=== PATIENT | female | born 2000 | race Caucasian/White ===

== ENCOUNTER → 2024-02-02 | Outpatient (CLI) | payer OTHER, SELFPAY ==
[2024-02-04 16:06] LABS: HPV Reflexed? NOT INDICATED
== END | disposition home or self-care (01) ==
LOC: LABSPEC 11:50
PROVIDERS: PCP Pediatrics; Referring Provider Nurse Practitioner Family; Visit Provider Nurse Practitioner Family
DX: Z12.4 Encounter for screening for malignant neoplasm of cervix (principal)
CPT/HCPCS: 88175; G0145

== ENCOUNTER → 2025-02-22 | Outpatient (CLI) | payer OTHER, SELFPAY ==
[2025-02-22 16:41] LABS: Hematocrit 39.6 % (37-47); Hemoglobin 13.4 g/dL (12.0-15.0); Immature Granulocytes Count 0.070 X10^3/uL (0.0-0.0); Mean Corp Hgb Conc 33.8 g/dL (32-36); Mean Corpuscular Volume 85.2 fL (81-99); Mean Platelet Vol. 11.0 fl (6.2-12.0); NRBC Flagged by Analyzer 0 % (0-5); Platelet Count 175 K/mm3 (150-450); RBC Distribution Width CV 12.1 % (11.6-14.6); RBC Distribution Width SD 37.2 fl (35.1-43.9); Red Blood Count 4.65 M/mm3 (4.2-5.4); White Blood Count 12.7 K/mm3 (4.4-11.0)
[2025-02-22 17:21] LABS: HIV Nonreactive (Nonreactive); Hepatitis B Surface Antigen Nonreactive (Nonreactive); Hepatitis C Antibody Nonreactive (Nonreactive); Syphilis Antibodies Nonreactive (Nonreactive)
[2025-02-25 06:07] LABS: Chlamydia By Nucleic Acid AMP Negative (Negative); Gonococcus By Nucleic Acid AMP Negative (Negative)
== END | disposition home or self-care (01) ==
LOC: BWCLAB 15:25
PROVIDERS: Visit Provider Obstetrics & Gynecology
DX: Z34.90 Encounter for supervision of normal pregnancy, unspecified, unspecified trimester (principal)
CPT/HCPCS: 36415; 85025; 86703; 86762; 86780; 86803; 86850; 86900; 86901; 87086; 87088; 87340; 87491; 87591

== ENCOUNTER → 2025-06-27 | Outpatient (CLI) | payer OTHER, SELFPAY ==
[2025-06-27 09:26] LABS: Hematocrit 34.2 % (37-47); Hemoglobin 11.5 g/dL (12.0-15.0); Immature Granulocytes Count 0.280 X10^3/uL (0.0-0.0); Mean Corp Hgb Conc 33.6 g/dL (32-36); Mean Corpuscular Volume 89.5 fL (81-99); Mean Platelet Vol. 11.1 fl (6.2-12.0); NRBC Flagged by Analyzer 0 % (0-5); Platelet Count 175 K/mm3 (150-450); RBC Distribution Width CV 12.5 % (11.6-14.6); RBC Distribution Width SD 40.6 fl (35.1-43.9); Red Blood Count 3.82 M/mm3 (4.2-5.4); White Blood Count 12.5 K/mm3 (4.4-11.0)
[2025-06-27 10:26] LABS: Glucose Challenge Gest 1H 50g 141 mg/dL (70-140); HIV Nonreactive (Nonreactive); Syphilis Antibodies Nonreactive (Nonreactive)
== END | disposition home or self-care (01) ==
PROVIDERS: Obstetrics & Gynecology; Visit Provider Student in an Organized Health Care Education/Training Program
DX: Z34.90 Encounter for supervision of normal pregnancy, unspecified, unspecified trimester (principal); Z3A.20 20 weeks gestation of pregnancy; Z13.1 Encounter for screening for diabetes mellitus
CPT/HCPCS: 36415; 82950; 85025; 86703; 86780

== ENCOUNTER → 2025-07-05 | Outpatient (CLI) | payer OTHER, SELFPAY ==
--- OUTSIDE RECORDS SUMMARY | 2025-07-05 06:58 | XMS RPT_ITS | CCD ---
Author Organization [facility] Care Team Providers Care Residential Caregiver Name Role Phone Pcp, No Primary Care Provider Unavailabl e Unavailable Primary Care Provider Unavailnino e Unavailable Primary Care Provider Ana Ruth MD, Dr. Flores Primary Care Provider Dr. Sandra Ruth MD Referring Provider Sury Brasher Attending Provider Selin HAYWARD, Dr. Moeller Attending Provider Dr. Melony Cruz DO Attending Provider Dr. Sandra Ruth MD Primary Care Physician Sury Brasher Attending Physician Dr. Sunni Moise MD Attending Physician Dr. Melony Cruz DO Attending Physician BASSAM PRIMARY CAREMD Primary Care Unavailable WHITNEY VALDIVIA Attending Unavailable SUNNI MOISE Referring Sunni Wooten Attending Unavailable Sunni Moise Attending Unavailable Melony Cruz Attending Sandra Tanner Referring Unavailable Melony Cruz Attending Sandra Tanner Primary Care Unavailable Sandra Ruth Referring Unavailable Sury Love Attending Unavailable Melony Cruz Attending Sunni Wooten Attending Unavailable Medications Current Medications Medication Drug Class(es) Dates Sig (Normalized) Sig (Original) amoxicillin 80 mg/ml oral suspension (5 sources) Penicillin-class Antibacterial Start: 11-08-2023 End: 11-18-2023 take 6.3 mL by mouth twice daily amoxicillin (AMOXIL) 400 mg/5 mL suspension Take 6.3 mL by mouth two times a day for 10 days. 126 mL 0 11/08/2023 11/18/2023 Active Start: 10-20-2023 End: 10-30-2023 take 10 mL by mouth twice daily amoxicillin (AMOXIL) 4 00 mg/5 mL suspension Indications: Strep throat Take 10 mL by mouth two times a day for 10 days. 200 mL 0 10/20/2023 10/30/2023 Active Start: 08-22-2022 End: 09-01-2022 take 6.3 mL by mouth twice daily amoxicillin (AMOXIL) 400 mg/5 mL suspension Take 6.3 mL by mouth twice daily for 10 days. 126 mL 0 08/22/2022 09/01/2022 Active Start: 08-22-2022 End: 08-22-2022 take 1 capsule by mouth twice daily amoxicillin (POLYMOX, AMOXIL) 500 mg capsule Take 1 capsule by mouth twice daily for 10 days. 20 capsule 0 08/22/2022 08/22/2022 Discontinued (Course of therapy completed) Start: 04-21-2015 End: 08-22-2022 amoxicillin (AMOXIL) 400 mg/ 5 mL suspension 12 ml twice a day x 10 days 240 mL 0 04/21/2015 08/22/2022 Discontinued (Course of therapy completed) Comment on above: Take 6.3 mL by mouth twice daily for 10 days. 12 ml twice a day x 10 days Take 1 capsule by [facility] twice daily for 10 days. Take 10 mL by mouth two times a day for 10 days. Take 6.3 mL by mouth two times a day for 10 days. docosahexaenoic acid 200 mg oral capsule (5 sources) Start: 025 Docosahexaenoic Acid ( Dha) 200 mg capsule Active mg PO February 18, 2025 12:00am Complies with drug therapy famotidine 20 mg oral tablet (1 source) Histamine-2 Receptor Antagonist Start: 024 take 1 tablet by mouth every twenty-four hours as needed famotidine (PEPCID) 20 mg tablet Take 1 tablet by mouth at bedtime as needed. 30 tablet 0 02/06/2024 Active Ibuprofen (3 sources) Nonsteroidal Anti-inflammatory Drug ibuprofen (MOTRIN ORAL) Take by mouth. 0 Active Comment on above: Take by mouth. predniSONE 10 mg oral tablet (1 source) Start: 024 predniSONE (DELTASONE) 10 mg tablet Take 4 tabs daily for 3 days, then 2 tabs daily for 3 days, then 1 tab daily for 3 days with food. 21 tablet 0 02/06/2024 Active Problems Active Problems Problem Classification Problem Date Documented Date Episodic/Chronic Allergic reactions (1 source) Contact dermatitis due to plants; Translations: [Unspecified contact dermatitis due to plants, except food] 02-06-2024 Episodic Disorders of teeth and jaw (6 sources) Loss of teeth due to extraction; Translations: [Partial loss of teeth, unspecified cause, unspecified class] 02-02-2024 Episodic Other and delivery including normal (20 sources) ; Translations: [Encounter for supervision of normal , unspecified, unspecified trimester] Onset: 04-20-2025 02-09-2025 Episodic Comment on above: LMP 12/27/24 , SARAVANAN 10/03/25, Hu sband: Ry Discussed genetic/ca rrier testing - undecided PRR, , SARAVANAN 6, : Ry Discussed genetic/ca rrier, afp declined. Other upper respiratory disease (1 source) Pain in throat; Translations: [Pain in throat] Episodic Other upper respiratory infections (2 sources) Streptococcal sore throat; Translations: [Streptococcal pharyngitis] 10-20-2023 Episodic Residual codes; unclassified (1 source) 16 weeks gestation of ; Translations: [16 weeks gestation of ] Onset: 04-20-2025 Episodic Residual codes; unclassified (1 source) 12 weeks gestation of ; Translations: [12 weeks gestation of ] Onset: 03-24-2025 Episodic Past or Other Problems Problem Classification Problem Date Documented Da te Episodic/Chronic Other screening for suspected conditions (not mental disorders or infectious disease) (1 source) Encounter for test, result unknown; Translations: [Encounter for test, result unknown] Onset: 02-09-2025 Episodic Results Test Name Value Interpretation Reference Range Facility [facility] Office Visit Reporton 05-19-2025 [facility] Office Visit Report [facility] [address], [address] [place] [address] OFFICE VISIT Date of Service: 05/19/25 MR#: [id number] Acct: [id number] Name: DOUG STILES Rep #: [id number] : 2000 Provider: Dr. Melony Upton DO Age/Sex: 24/F Location: [facility] – [place] Status: Signed Intake Vital Signs 02/22/25 14:32 04/20/25 15:34 05/19/25 15:45 Height 5 ft 8 in 5 ft 8 in 5 ft 8 in Weight: 196 lb 4 oz BMI 29.8 BP 128/83 H Intake Visit Reasons: 20 wk ob Web Publisher Required: No Is patient in pain?: No Allergies No Known Allergies Allergy (Verified 04/20/25 15:31) Medications ???Medication ???Instructions ???Recorded ???Confirmed ???Type docosahexaenoic acid 200 mg mg PO 02/18/25 05/19/25 History capsule ( DHA) Last Menstrual Period: 12/27/24 Zika: Zika virus screening: Negative : No PFSH PFSH Surgical History [place] teeth extracted Family History Brother Asthma Social History adopted: No household members: spouse number of children: 0 current occupational status: employed 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/hazards: No pets and animals: Yes pets and animals: dog(s) history of recent travel: Yes ([facility] - January 2025) out of state: Yes out of country: No sexually active: Yes Smoking Status: Never smoker second hand exposure: No alcohol intake: current alcohol intake frequency: holidays/special occasions only details: Not while substance use type: does not use well-balanced diet: about half the time caffeine: Yes Type: coffee eating out: 1-3 times/week during the past year weight has: remained stable what type of physical activity do you participate in: walking frequency: 3-4 times per week duration: 15-30 minutes/day mellissa/synagogue: Yarsani seatbelt use: always do you feel safe at home: Yes additional social history: : Ry Pierce History 1 Elective abortions 0 Hx Para 0 Spontaneous abortions 0 Hx # Term Pregnancies Ectopic pregnancies Hx # Pregnancies Multiple births # of living children 0 HPI 20 wk ob Details: DOUG STILES is a 24 year old who presents for routine OB visit. OB Visit SARAVANAN Calculator Estimated Delivery Date Method Current WG Current Estimate 10/03/25 LMP (Certain) 20w 3d Expected Delivery Route/Plan Labor Preferences- CB/BF classes: [] labor support person: [] labor intervention preferences: [] pain management options preferred: [] cut cord/dad catch: [] : [] PP control planned: [] discussed possible routes of delivery and associated risks: [] special requests: [] Specific Issue/Plans Covid status: [] Flu vaccine: [] Tdap vaccine: [] Rhogam: [] LARC form signed: [] Problem list reviewed and updated with the most current plan of care details and appropriate orders placed. Relevant counseling for the gestational age provided. Continue routine care and follow up unless otherwise noted in visit notes/problem list details Initial Weight: 173 lb Date -???-???-???-???-???- ???-???-???-???-???-? ??-???- EGA Weight BP Urine Prot -???-???-???-???-???- ???-???-???-???-???-? ??-???- Glucose FHR FuHt Pres Dilation -???-???-???-???-???- ???-???-???-???-???-? ??-???- Effaced St Visit Note 02/22/25 -???-???-???-???-???- ???-???-???-???-???-? ??-???- 8w 1d 173 lb 2 oz (+2 oz) 132/84 -???-???-???-???-???- ???-???-???-???-???-? ??-???- 165 -???-???-???-???-???- ???-???-???-???-???-? ??-???- JV- CRL cons istent with LMP. declines NIPT. 03/24/25 -???-???-???-???-???- ???-???-???-???-???-? ??-???- 12w 3d 179 lb 5 oz (+6 lb 5 oz) 130/87 -???-???-???-???-???- ???-???-???-???-???-? ??-???- 155 -???-???-???-???-???- ???-???-???-???-???-? ??-???- SM- no vb cr amping 04/20/25 -???-???-???-???-???- ???-???-???-???-???-? ??-???- 16w 2d 183 lb (+10 lb) 134/85 Negative -???-???-???-???-???- ???-???-???-???-???-? ??-???- Negative 145 -???-???-???-???-???- ???-???-???-???-???-? ??-???- Sm- no vb cr amping 05/19/25 -???-???-???-???-???- ???-???-???-???-???-? ??-???- 20w 3d 196 lb 4 oz (+23 lb 4 oz) 128/83 Negative -???-???-???-???-???- ???-???-???-???-???-? ??-???- Negative 150 -???-???-???-???-???- ???-???-???-???-???-? ??-???- JV- no lof, vaginal bleeding, or cramping. anatomy scan done but not complete. goes back soon for repeat. declines flu shot. ACOG First Trimester First Trimester: Desire for , Alcohol, Tobacco Cessation, Illicit/Recreational Drug/ (more content not included)... Normal [facility] - Chemistry and C hemistry - challengeOrdered By: Sunni Moise on 04-20-2025 Glucose Ql (U) Negative [facility] - UrinalysisOrder ed By: Sunni Moise on 04-20-2025 Protein Ql (U) Negative [facility] Lighthouse Keeper Office Visit Reporton 04-20-2025 Lighthouse Keeper Office Visit Report [facility] [address], [facility] [address] [place] [address] OFFICE VISIT Date of Service: 04/20/25 MR#: [id number] Acct: [id number] Name: DOUG STILES Rep #: [id number] : 2000 Provider: Dr. Sunni sellers MD Age/Sex: 24/F Location: [facility] – [place] Status: Signed Intake Vital Signs 02/09/25 10:14 02/22/25 14:32 03/24/25 15:46 04/20/25 15:34 Height 5 ft 8 in 5 ft 8 in 5 ft 8 in 5 ft 8 in Weight: 183 lb BMI 27.8 BP 134/85 H Intake Visit Reasons: 16wk OB Chief Complaint: 16wk OB Web Publisher Required: No Is patient in pain?: No Allergies No Known Allergies Allergy (Verified 04/20/25 15:31) Medications ???Medication ???Instructions ???Recorded ???Confirmed ???Type docosahexaenoic acid 200 mg mg PO 02/18/25 04/20/25 History capsule ( DHA) Last Menstrual Period: 12/27/24 : No PFSH PFSH Surgical History [place] teeth extracted Family History Brother Asthma Social History adopted: No household members: spouse number of children: 0 current occupational status: employed 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/hazards: No pets and animals: Yes pets and animals: dog(s) history of recent travel: Yes ([facility] - January 2025) out of state: Yes out of country: No sexually active: Yes Smoking Status: Never smoker second hand exposure: No alcohol intake: current alcohol intake frequency: holidays/special occasions only details: Not while substance use type: does not use well-balanced diet: about half the time caffeine: Yes Type: coffee eating out: 1-3 times/week during the past year weight has: remained stable what type of physical activity do you participate in: walking frequency: 3-4 times per week duration: 15-30 minutes/day mellissa/synagogue: Yarsani seatbelt use: always do you feel safe at home: Yes additional social history: : Ry Pierce History 1 Elective abortions 0 Hx Para 0 Spontaneous abortions 0 Hx # Term Pregnancies Ectopic pregnancies Hx # Pregnancies Multiple births # of living children 0 HPI 16wk OB Details: DOUG STILES is a 24 year old who presents for routine OB visit. OB Visit SARAVANAN Calculator Estimated Delivery Date Method Current WG Current Estimate 10/03/25 LMP (Certain) 16w 2d Expected Delivery Route/Plan Labor Preferences- CB/BF classes: [] labor support person: [] labor intervention preferences: [] pain management options preferred: [] cut cord/dad catch: [] : [] PP control planned: [] discussed possible routes of delivery and associated risks: [] special requests: [] Specific Issue/Plans Covid status: [] Flu vaccine: [] Tdap vaccine: [] Rhogam: [] LARC form signed: [] Problem list reviewed and updated with the most current plan of care details and appropriate orders placed. Relevant counseling for the gestational age provided. Continue routine care and follow up unless otherwise noted in visit notes/problem list details Initial Weight: 173 lb Date -???-???-???-???-???- ???-???-???-???-???-? ??-???- EGA Weight BP Urine Prot -???-???-???-???-???- ???-???-???-???-???-? ??-???- Glucose FHR FuHt Pres Dilation -???-???-???-???-???- ???-???-???-???-???-? ??-???- Effaced St Visit Note 02/22/25 -???-???-???-???-???- ???-???-???-???-???-? ??-???- 8w 1d 173 lb 2 oz (+2 oz) 132/84 -???-???-???-???-???- ???-???-???-???-???-? ??-???- 165 -???-???-???-???-???- ???-???-???-???-???-? ??-???- JV- CRL cons istent with LMP. declines NIPT. 03/24/25 -???-???-???-???-???- ???-???-???-???-???-? ??-???- 12w 3d 179 lb 5 oz (+6 lb 5 oz) 130/87 -???-???-???-???-???- ???-???-???-???-???-? ??-???- 155 -???-???-???-???-???- ???-???-???-???-???-? ??-???- SM- no vb cr amping 04/20/25 -???-???-???-???-???- ???-???-???-???-???-? ??-???- 16w 2d 183 lb (+10 lb) 134/85 Negative -???-???-???-???-???- ???-???-???-???-???-? ??-???- Negative 145 -???-???-???-???-???- ???-???-???-???-???-? ??-???- Sm- no vb cr amping ACOG First Trimester First Trimester: Desire for , Alcohol, Tobacco Cessation, Illicit/Recreational Drug/Substance Use, Intimate Partner Violence, Barriers to care, Unstable Housing, Communication Barriers, Environmental/Work Hazards, Anticipated Course of Care, Toxoplasmosis Precations, Use of Any medications, Sexual activity, Exercise, Dental Care, Sauna/Hot tub use, Seat Belt use, Childbirth classes/Hospital facilities, Travel, Indications for Ultrasound and S (more content not included)... Normal [facility] Lighthouse Keeper Office Visit Reporton 03-24-2025 Lighthouse Keeper Office Visit Report [facility] [address], [address] [place] [address] OFFICE VISIT Date of Service: 03/24/25 MR#: [id number] Acct: [id number] Name: DOUG STILES Rep #: [id number] : 2000 Provider: Dr. Sunni sellers MD Age/Sex: 24/F Location: [facility] – [place] Status: Signed Intake Vital Signs 02/09/25 10:14 02/22/25 14:32 03/24/25 15:46 Height 5 ft 8 in 5 ft 8 in 5 ft 8 in Weight: 179 lb 5 oz BMI 27.2 BP 130/87 H Intake Visit Reasons: 12wk OB Web Publisher Required: No Is patient in pain?: No Feel stressed/tense/nervou s/anxious/difficulty sleeping: not at all Allergies No Known Allergies Allergy (Verified 03/24/25 15:44) Medications ???Medication ???Instructions ???Recorded ???Confirmed ???Type docosahexaenoic acid 200 mg mg PO 02/18/25 03/24/25 History capsule ( DHA) Last Menstrual Period: 12/27/24 Zika: Zika virus screening: Negative : No PFSH PFSH Surgical History [place] teeth extracted Family History Brother Asthma Social History adopted: No household members: spouse number of children: 0 current occupational status: employed 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/hazards: No pets and animals: Yes pets and animals: dog(s) history of recent travel: Yes ([facility] - January 2025) out of state: Yes out of country: No sexually active: Yes Smoking Status: Never smoker second hand exposure: No alcohol intake: current alcohol intake frequency: holidays/special occasions only details: Not while substance use type: does not use well-balanced diet: about half the time caffeine: Yes Type: coffee eating out: 1-3 times/week during the past year weight has: remained stable what type of physical activity do you participate in: walking frequency: 3-4 times per week duration: 15-30 minutes/day mellissa/synagogue: Yarsani seatbelt use: always do you feel safe at home: Yes additional social history: : Ry - [employer] History 1 Elective abortions 0 Hx Para 0 Spontaneous abortions 0 Hx # Term Pregnancies Ectopic pregnancies Hx # Pregnancies Multiple births # of living children 0 HPI 12wk OB Details: DOUG STILES is a 24 year old who presents for routine OB visit. OB Visit SARAVANAN Calculator Estimated Delivery Date Method Current WG Current Estimate 10/03/25 LMP (Certain) 12w 3d Expected Delivery Route/Plan Labor Preferences- CB/BF classes: [] labor support person: [] labor intervention preferences: [] pain management options preferred: [] cut cord/dad catch: [] : [] PP control planned: [] discussed possible routes of delivery and associated risks: [] special requests: [] Specific Issue/Plans Covid status: [] Flu vaccine: [] Tdap vaccine: [] Rhogam: [] LARC form signed: [] Problem list reviewed and updated with the most current plan of care details and appropriate orders placed. Relevant counseling for the gestational age provided. Continue routine care and follow up unless otherwise noted in visit notes/problem list details Initial Weight: 173 lb Date -???-???-???-???-???- ???-???-???-???-???-? ??-???- EGA Weight BP Urine Prot -???-???-???-???-???- ???-???-???-???-???-? ??-???- Glucose FHR FuHt Pres Dilation -???-???-???-???-???- ???-???-???-???-???-? ??-???- Effaced St Visit Note 02/22/25 -???-???-???-???-???- ???-???-???-???-???-? ??-???- 8w 1d 173 lb 2 oz (+2 oz) 132/84 -???-???-???-???-???- ???-???-???-???-???-? ??-???- 165 -???-???-???-???-???- ???-???-???-???-???-? ??-???- JV- CRL cons istent with LMP. declines NIPT. 03/24/25 -???-???-???-???-???- ???-???-???-???-???-? ??-???- 12w 3d 179 lb 5 oz (+6 lb 5 oz) 130/87 -???-???-???-???-???- ???-???-???-???-???-? ??-???- 155 -???-???-???-???-???- ???-???-???-???-???-? ??-???- SM- no vb cr amping ACOG First Trimester First Trimester: Desire for , Alcohol, Tobacco Cessation, Illicit/Recreational Drug/Substance Use, Intimate Partner Violence, Barriers to care, Unstable Housing, Communication Barriers, Environmental/Work Hazards, Anticipated Course of Care, Toxoplasmosis Precations, Use of Any medications, Sexual activity, Exercise, Dental Care, Sauna/Hot tub use, Seat Belt use, Childbirth classes/Hospital facilities, Travel, Indications for Ultrasound and Screening for Aneuploidy; Discussed Coding Level of Care Code OB Routine Diagnoses Supervision of normal Z34.90 12 weeks gestation of pregnan (more content not included)... Normal [facility] Chlamydia/GC SO aptimaon CHLAMY,NUC ACID Negative Normal Negative [facility] Comment on above: Performed By: #### L 6999.1799, #### [facility] [address] [place], [address] GC BY NUC ACID Negative Normal Negative [facility] Comment on above: Result Comment: Perf ormed at: =G - [facility] [address] [id number] Rn Medical Inpatient Services: Rebekah Villavicencio MD, Phone: [phone] Performed By: #### L 0.1800, #### [facility] [address] [place], [address] Urine Cultureon 02-24-2025 [facility] Below infection level. Mixed Gram Positive Organisms [place] Count <1000 MIXC Mixed contaminants. Submit a new specimen if indicated. Normal [facility] Comment on above: Performed By: #### L 7000.1800, M100.2200 #### [facility] [address] [place], [place], [id number] Absolute lymphocyte countOrd ered By: Melony Yarelis on 02-22-2025 Lymphocytes Auto (Unsp spec) [#/Vol] 2.19 10*3/uL 0.83-4.51 [facility] Absolute neutrophil countOrd ered By: Melony Yarelis on 02-22-2025 Neutrophils (Bld) [#/Vol] 9.3 10*3/uL High 2.0-7.7 [facility] Automated lymphocyte count a s percentage of total leukocytesOrdered By: Melony Santoyo on 02-22-2025 Lymphocytes/100 WBC Auto (Unsp spec) 17.3 % Low 19-41 [facility] Basophil percentageOrdered B y: Melony Yarelis on 02-22-2025 Basophils/100 WBC (Bld) 0.3 % 0-1 [facility] CBC W/Diff, Automatedon 01-26 Absolute Lymph 2.19 X10 3/uL Normal 0.83-4.51 [facility] Comment on above: Performed By: #### B TS, L3890.6301, L3890.6006, L3890.6102, L100.0100, L509.8002, L509.4006 #### [facility] [address] [place], [place], [id number] Absolute Neut 9.3 X10 3/uL High 2.0-7.7 [facility] Comment on above: Performed By: #### B TS, L3890.6301, L3890.6006, L3890.6102, L100.0100, L509.8002, L509.4006 #### [facility] [address] [place], [address] Basophils/100 WBC (Bld) 0.3 % Normal 0-1 [facility] Comment on above: Performed By: #### B TS, L3890.6301, L3890.6006, L3890.6102, L100.0100, L509.8002, L509.4006 #### [facility] [address] [place], [address] Eosinophils/100 WBC (Bld) 0.6 % Normal 0-5 [facility] Comment on above: Performed By: #### B TS, L3890.6301, L3890.6006, L3890.6102, L100.0100, L509.8002, L509.4006 #### [facility] [address] [place], [address] Erythrocyte distribution width (RBC) [Ratio] 12.1 % Normal 11.6-14.6 [facility] Comment on above: Performed By: #### B TS, L3890.6301, L3890.6006, L3890.6102, L100.0100, L509.8002, L509.4006 #### [facility] [address] [place], [address] Hematocrit (Bld) [Volume fraction] 39.6 % Normal 37-47 [facility] Comment on above: Performed By: #### B TS, L3890.6301, L3890.6006, L3890.6102, L100.0100, L509.8002, L509.4006 #### [facility] [address] [place], [address] Hemoglobin (Bld) [Mass/Vol] 13.4 g/dL Normal 12.0-15.0 [facility] Comment on above: Performed By: #### B TS, L3890.6301, L3890.6006, L3890.6102, L100.0100, L509.8002, L509.4006 #### [facility] [address] [place], [address] IG% 0.600 Normal 0.0-0.9 [facility] Comment on above: Result Comment: IG% - Immature Granulocytes (promyelocytes, myelocytes and metamyelocytes) > 1% indicates that a LEFT SHIFT is Present. Performed By: #### B TS, L3890.6301, L3890.6006, L3890.6102, L100.0100, L509.8002, L509.4006 #### [facility] [address] [place], [address] Lymphocytes/100 WBC (Bld) 17.3 % Low 19-41 [facility] Comment on above: Performed By: #### B TS, L3890.6301, L3890.6006, L3890.6102, L100.0100, L509.8002, L509.4006 #### [facility] [address] [place], [address] MCH (RBC) [Entitic mass] 28.8 pg Normal 27.0-32.0 [facility] Comment on above: Performed By: #### B TS, L3890.6301, L3890.6006, L3890.6102, L100.0100, L509.8002, L509.4006 #### [facility] [address] [place], [address] MCHC (RBC) [Mass/Vol] 33.8 g/dL Normal 32-36 [facility] Comment on above: Performed By: #### B TS, L3890.6301, L3890.6006, L3890.6102, L100.0100, L509.8002, L509.4006 #### [facility] [address] [place], [address] MCV (RBC) [Entitic vol] 85.2 fL Normal 81-99 [facility] Comment on above: Performed By: #### B TS, L3890.6301, L3890.6006, L3890.6102, L100.0100, L509.8002, L509.4006 #### [facility] [address] [place], [address] Monocytes/100 WBC (Bld) 7.7 % Normal 0-10 [facility] Comment on above: Performed By: #### B TS, L3890.6301, L3890.6006, L3890.6102, L100.0100, L509.8002, L509.4006 #### [facility] [address] [place], [address] Neutrophils/100 WBC (Bld) 73.5 % High 47-70 [facility] Comment on above: Performed By: #### B TS, L3890.6301, L3890.6006, L3890.6102, L100.0100, L509.8002, L509.4006 #### [facility] [facility] [address] [place], [address] Nucleated RBC (Bld) [#/Vol] 0 10*3/uL Normal 0-5 [facility] Comment on above: Performed By: #### B TS, L3890.6301, L3890.6006, L3890.6102, L100.0100, L509.8002, L509.4006 #### [facility] [address] [place], [address] Platelet mean volume (Bld) [Entitic vol] 11.0 fL Normal 6.2-12.0 [facility] Comment on above: Performed By: #### B TS, L3890.6301, L3890.6006, L3890.6102, L100.0100, L509.8002, L509.4006 #### [facility] [address] [place], [address] Platelets (Bld) [#/Vol] 175 10*3/uL Normal 150-450 [facility] Comment on above: Performed By: #### B TS, L3890.6301, L3890.6006, L3890.6102, L100.0100, L509.8002, L509.4006 #### [facility] [address] [place], [address] RBC (Bld) [#/Vol] 4.65 10*6/uL Normal 4.2-5.4 [facility] Comment on above: Performed By: #### B TS, L3890.6301, L3890.6006, L3890.6102, L100.0100, L509.8002, L509.4006 #### [facility] [address] [place], [address] RDW SD 37.2 fl Normal 35.1-43.9 [facility] Comment on above: Performed By: #### B TS, L3890.6301, L3890.6006, L3890.6102, L100.0100, L509.8002, L509.4006 #### [facility] [address] [place], [address] WBC (Bld) [#/Vol] 12.7 10*3/uL High 4.4-11.0 [facility] Comment on above: Performed By: #### B TS, L3890.6301, L3890.6006, L3890.6102, L100.0100, L509.8002, L509.4006 #### [facility] [address] [place], [address] Chlamydia trachomatis rRNA d etection by probe and target amplification methodOrdered By: Melony Santoyo on 02-22-2025 C. trachomatis rRNA SO+probe Ql (Unsp spec) Negative Negative [facility] Eosinophil percentageOrdered By: Melony Lenzkelley on 02-22-2025 Eosinophils/100 WBC (Bld) 0.6 % 0-5 [facility] Erythrocyte distribution wid th ratioOrdered By: Melony Santoyo on 02-22-2025 Erythrocyte distribution width (RBC) [Ratio] 12.1 % 11.6-14.6 [facility] Erythrocyte distribution wid th standard deviationOrdered By: Melony Santoyo on 02-22-2025 Erythrocyte distribution width (RBC) [Ratio] 37.2 fl 35.1-43.9 [facility] HIVon 02-22-2025 HIV Non-Reactive Normal Nonreactive [facility] Comment on above: Result Comment: Non- Reactive Reactive Repeatedly reactive samples must be confirmed according to CDC recommended confirmatory algorithms. The subresults for either HIVAG or AHIV can be used as an aid in the selection of the confirmation algorithm for reactive samples. Send out specimens with Reactive results to [facility] for confirmation. Order the HIV antibody detection and differentiation: lc#[id number] Performed By: #### B TS, L3890.6301, L3890.6006, L3890.6102, L100.0100, L509.8002, L509.4006 #### [facility] [address] [place], [address] Hematocrit Auto (Bld) [Volum e fraction]Ordered By: Melony Santoyo on 02-22-2025 Hematocrit (Bld) [Volume fraction] 39.6 % 37-47 [facility] Hemoglobin measurementOrdere d By: Melony Yarelis on 02-22-2025 Hemoglobin (Bld) [Mass/Vol] 13.4 g/dL 12.0-15.0 [facility] Hepatitis C Antibodyon 02-22 Hepatitis C Ab Non-Reactive Normal Nonreactive [facility] Comment on above: Result Comment: Reac tive: Presumptive evidence of antibodies to HCV. Follow CDC recommendations for supplemental testing. Non-Reactive: Antibodies to HCV were not detected; does not exclude the possibility of exposure to HCV Reactive Results are presumptive evidence of antibodies to HCV. Follow CDC recommendations for supplemental testing. Order confirmation testing: HCV Quant by PCR testing - HCVPCR #[id number] Non Reactive: < 0.8 Equivocal: >/= 0.8 to < 1.0 Reactive: >/= 1.0 The CDC requires that a reactive/equivocal HCV antibody result be sent out for confirmation. HCV Quant by PCR testing. Performed By: #### B TS, L3890.6301, L3890.6006, L3890.6102, L100.0100, L509.8002, L509.4006 ####[facility] [id number] [facility] [place], [address] Immature granulocytes/100 WB C Auto (Bld)Ordered By: Melony Santoyo on 02-22-2025 Immature granulocytes/100 WBC (Bld) 0.600 % 0.0-0.9 [facility] Comment on above: IG% - Immature Granu locytes (promyelocytes, myelocytes and metamyelocytes) > 1% indicates that a LEFT SHIFT is Present. L3890.6102on 02-22-2025 HEP B Surf Ag Non-Reactive Normal Nonreactive [facility] Comment on above: Result Comment: Reac tive: Presumptive evidence of HBV. Repeatedly reactive samples must be confirmed using a neutralization test ([employer] HBsAg Confirmatory Test) Non-Reactive: HBsAg not detected; does not exclude the possibility of exposure to HBV Performed By: #### B TS, L3890.6301, L3890.6006, L3890.6102, L100.0100, L509.8002, L509.4006 #### [facility] [address] [facility] [place], [address] L509.4006on 02-22-2025 Rubella IgG REAC Normal Nonreactive [facility] Comment on above: Result Comment: Anti body Result: Interpretation Non-Reactive: Non-Immune Reactive: Immune The following results were obtained with the [employer] Rubella IgG assay. Results from assays of other manufacturers cannot be used interchangeably. Performed By: #### B TS, L3890.6301, L3890.6006, L3890.6102, L100.0100, L509.8002, L509.4006 #### [facility] [address] [place], [address] Laboratory - Microbiology an d Antimicrobial susceptibilityOrdered By: Melony Santoyo on 02-22-2025 HBV surface Ag Ql (S) Non-Reactive Nonreactive [facility] Comment on above: Reactive: Presumptiv e evidence of HBV. Repeatedly reactive samples must be confirmed using a neutralization test ([employer] HBsAg Confirmatory Test)Non-Reactive: HBsAg not detected; does not exclude the possibility of exposure to HBV MCV (mean corpuscular volume ) determinationOrdered By: Melony Santoyo on 02-22-2025 MCV (RBC) [Entitic vol] 85.2 fL 81-99 [facility] Mean corpuscular hemoglobin (MCH) determinationOrdered By: Melony Santoyo on 02-22-2025 MCH (RBC) [Entitic mass] 28.8 pg 27.0-32.0 [facility] Mean corpuscular hemoglobin concentration (MCHC) determinationOrdered By: Melony Santoyo on 02-22-2025 MCHC (RBC) [Mass/Vol] 33.8 g/dL 32-36 [facility] Mean platelet volume determi nationOrdered By: Melony Santoyo on 02-22-2025 Platelet mean volume (Bld) [Entitic vol] 11.0 fL 6.2-12.0 [facility] Monocyte percentageOrdered B y: Melony Santoyo on 02-22-2025 Monocytes/100 WBC (Bld) 7.7 % 0-10 [facility] Neisseria gonorrhoeae nuclei c acid detection by amplified probe techniqueOrdered By: Melony Santoyo on 02-22-2025 N. gonorrhoeae DNA SO+probe Ql (Unsp spec) Negative Negative [facility] Comment on above: Performed at: =[facility] [address] [id number] Director: Rebekah Villavicencio MD, Phone: [phone] Neutrophil percentageOrdered By: Melony Santoyo on 02-22-2025 Neutrophils/100 WBC (Bld) 73.5 % High 47-70 [facility] No Panel InformationOrdered By: Melony Santoyo on 02-22-2025 HIV (1&2) Antibody Non-Reactive Nonreactive [facility] Comment on above: Non-ReactiveReactive Repeatedly reactive samples must be confirmed according to CDC recommended confirmatory algorithms. The subresults for either HIVAG or AHIV can be used as an aid in the selection of the confirmation algorithm for reactive samples.Send out specimens with Reactive results to [facility] for confirmation.Order the HIV antibody detection and differentiation: #[id number] Nucleated red blood cell per centageOrdered By: Melony Santoyo on 02-22-2025 Nucleated RBC/100 WBC (Bld) [Ratio] 0 % 0-5 [facility] Office Visit Reporton 02-22-2025 [facility] Office Visit Report [facility] [address], [address] [place] [address] OFFICE VISIT Date of Service: 02/22/25 MR#: [id number] Acct: [id number] Name: DOUG STILES Rep #: [id number] : 2000 Provider: Dr. Melony Upton DO Age/Sex: 24/F Location: [facility] [place] Status: Signed Intake Vital Signs 02/09/25 09:04 02/09/25 10:14 02/18/25 09:07 02/22/25 14:30 02/22/25 14:32 Height 5 ft 8 in 5 ft 8 in 5 ft 8 in 5 ft 8 in 5 ft 8 in Weight: 173 lb 2 oz BMI 26.3 BP 132/84 H Intake Visit Reasons: *EST* NOB LMP 6/, SARAVANAN 10/03 Web Publisher Required: No Is patient in pain?: No Allergies No Known Allergies Allergy (Verified 02/22/25 14:30) Medications ???Medication ???Instructions ???Recorded ???Confirmed ???Type docosahexaenoic acid 200 mg mg PO 02/18/25 02/22/25 History capsule ( DHA) Last Menstrual Period: 12/27/24 Zika: Zika virus screening: Negative : No PFSH PFSH Surgical History [place] teeth extracted Family History Brother Asthma Social History adopted: No household members: spouse number of children: 0 current occupational status: employed 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/hazards: No pets and animals: Yes pets and animals: dog(s) history of recent travel: Yes ([facility] - January 2025) out of state: Yes out of country: No sexually active: Yes Smoking Status: Never smoker second hand exposure: No alcohol intake: current alcohol intake frequency: holidays/special occasions only details: Not while substance use type: does not use well-balanced diet: about half the time caffeine: Yes Type: coffee eating out: 1-3 times/week during the past year weight has: remained stable what type of physical activity do you participate in: walking frequency: 3-4 times per week duration: 15-30 minutes/day mellissa/synagogue: Yarsani seatbelt use: always do you feel safe at home: Yes additional social history: : [place] History 1 Elective abortions 0 Hx Para 0 Spontaneous abortions 0 Hx # Term Pregnancies Ectopic pregnancies Hx # Pregnancies Multiple births # of living children 0 HPI *EST* NOB LMP 6/, SARAVANAN 10/03 Details: DOUG STILES is a 24 year old who presents for New OB visit. OB Visit [facility] Calculator Estimated Delivery Date Method Current WG Current Estimate 10/03/25 LMP (Certain) 8w 1d Estimated Due Date: 10/03/25 Expected Delivery Route/Plan Labor Preferences- CB/BF classes: [] labor support person: [] labor intervention preferences: [] pain management options preferred: [] cut cord/dad catch: [] : [] PP control planned: [] discussed possible routes of delivery and associated risks: [] special requests: [] Specific Issue/Plans Covid status: [] Flu vaccine: [] Tdap vaccine: [] Rhogam: [] LARC form signed: [] Problem list reviewed and updated with the most current plan of care details and appropriate orders placed. Relevant counseling for the gestational age provided. Continue routine care and follow up unless otherwise noted in visit notes/problem list details Initial Weight: 173 lb Date -???-???-???-???-???- ???-???-???-???-???-? ??-???- EGA Weight BP Urine Prot -???-???-???-???-???- ???-???-???-???-???-? ??-???- Glucose FHR FuHt Pres Dilation -???-???-???-???-???- ???-???-???-???-???-? ??-???- Effaced St Visit Note 02/22/25 -???-???-???-???-???- ???-???-???-???-???-? ??-???- 8w 1d 173 lb 2 oz (+2 oz) 132/84 -???-???-???-???-???- ???-???-???-???-???-? ??-???- 165 -???-???-???-???-???- ???-???-???-???-???-? ??-???- JV- CRL cons istent with LMP. declines NIPT. Menstrual History Last Menstrual Period: 12/27/24 Reported LMP: definite Normal amount/duration: Yes Frequency in days: 31 On hormonal BC at conception: No hCG+: 01/28/25 Antepartum Record Genetic Screening: Congenital Heart Defect: Other, Neural Tube Defect: Other, Hemoglobinopathy Or Carrier: Other, Cystic Fibrosis: Other, Chromosome Abnormality: Other, Ronak-Sachs: Other, Hemophilia: Other, Intellectual Disability/Autism: Other, Recurrent Loss/Stillbirth: Other, Other Structural Defect: Other, Other Genetic Disease: Other and Maternal Metabolic Disorder: Other Infection History: Live with someone with TB or Exposed to TB: No, Patient or Partner has history of Genital Herpes: No, Rash or Viral illness since last mentrual period: No, Prior GBS-Infected child: No, History of STD: No, HIV Infection: No, History of (more content not included)... Normal [facility] Platelet countOrdered By: Ted Santoyo on 02-22-2025 Platelets (Bld) [#/Vol] 175 10*3/uL 150-450 [facility] RBC Auto (Bld) [#/Vol]Ordere d By: Melony Santoyo on 02-22-2025 RBC (Bld) [#/Vol] 4.65 10*6/uL 4.2-5.4 [facility] Syphilis Antibodieson 2024 Syphilis Abs Non-Reactive Normal Nonreactive [facility] Comment on above: Performed By: #### B TS, L3890.6301, L3890.6006, L3890.6102, L100.0100, L509.8002, L509.4006 #### [facility] [address] [place], [place], [id number] Type AND Screenon 02-22-2025 ABO and Rh group Nom (Bld) Blood group A Rh(D) positive Normal [facility] Comment on above: Order Comment: PN Performed By: #### B TS, L3890.6301, L3890.6006, L3890.6102, L100.0100, L509.8002, L509.4006 ####[facility] [id number] [place], [place], [id number] Urine cultureOrdered By: Tiffanie Santoyo on 02-22-2025 Bacteria identified Cx Nom (U) Positive Abnormal [facility] White blood cell (WBC) count Ordered By: Melony Santoyo on 02-22-2025 WBC (Bld) [#/Vol] 12.7 10*3/uL High 4.4-11.0 [facility] Office Visit Reporton 2024 Office Visit Report [facility] [address] [place] [address] OFFICE VISIT Date of Service: 02/18/25 MR#: [id number] Acct: [id number] Patient: DOUG STILES Rep #: [id number] : 2000 Provider: Dr. Sunni sellers MD Age/Sex: 24/F Location: [facility] – [place] Status: Signed Intake Vital Signs 02/09/25 10:14 02/18/25 09:07 Height 5 ft 8 in 5 ft 8 in Weight: 171 lb 6 oz BMI 26.0 BP 110/66 Intake Visit Reasons: PNOB, Vitals, Education Allergies No Known Allergies Allergy (Verified 02/22/25 14:30) Medications ???Medication ???Instructions ???Recorded ???Confirmed ???Type docosahexaenoic acid 200 mg mg PO 02/18/25 02/22/25 History capsule ( DHA) Is last menstrual period known: Yes Post menopausal: No Patient : Yes Nurse's Note: Pt here for secondary amenorrhea. Vitals WNL. PNOB questions completed. Problem list, allergies, and medications updated. First trimester ACOG education completed. Assessment and Plan Assessment and Plan (1) : Status: Acute Comment: Discussed genetic/carrier testing - undecided (2) Supervision of normal : Status: Acute Comment: , SARAVANAN 10/03/25, : Ry Orders: Orders CBC W/Diff, Automated Today Z34.90 - Encounter for supervision of normal , unspecified, unspecified trimester Type Screen Today Z34.90 - Encounter for supervision of normal , unspecified, unspecified trimester Rubella IgG Today Z34.90 - Encounter for supervision of normal , unspecified, unspecified trimester Hepatitis C Antibody Today Z34.90 - Encounter for supervision of normal , unspecified, unspecified trimester Hepatitis B Surface Antigen Today Z34.90 - Encounter for supervision of normal , unspecified, unspecified trimester Culture, Urine Today Z34.90 - Encounter for supervision of normal , unspecified, unspecified trimester Syphilis Antibodies Today Z34.90 - Encounter for supervision of normal , unspecified, unspecified trimester Chlamydia/GC SO aptima Today Z34.90 - Encounter for supervision of normal , unspecified, unspecified trimester HIV Today Z34.90 - Encounter for supervision of normal , unspecified, unspecified trimester 02/22/25 1639 Date Sunni Moise MD Cosignvirgilio Signature: Date (if applicable) CC: Normal [facility] - Chemistry and C hemistry - challengeOrdered By: Sury Love on 02-09-2025 HCG ( test) Ql (U) Positive [facility] Office Visit Reporton 02-09-2025 [facility] Keeper Office Visit Report [facility] [address], [address] [place] [address] OFFICE VISIT Date of Service: 02/09/25 MR#: [id number] Acct: [id number] Name: DOUG STILES Rep #: [id number] : 2000 Provider: ADONIS Coyne Age/Sex: 24/F Location: [facility] – [place] Status: Signed Intake Vital Signs 02/02/24 09:01 02/09/25 09:04 02/09/25 09:37 Height 5 ft 8 in 5 ft 8 in Weight: 170 lb 6 oz BMI 25.9 BP 137/83 H 122/81 H Intake Visit Reasons: Annual (CONSTRUCTION ADMINISTRATOR) Web Publisher Required: No Is patient in pain?: No Allergies No Known Allergies Allergy (Verified 02/09/25 09:02) Medications ???Medication ???Instructions ???Recorded ???Confirmed ???Type NK 02/02/24 02/09/25 History Is last menstrual period known: Yes Last Menstrual Period: 12/27/24 Post menopausal: No Patient : Yes : No Control Method: none PFSH Surgical History [place] teeth extracted Family History Brother Asthma Social History (Updated 02/09/25 @ 09:12 by Sanjuanita Cheek) adopted: No household members: significant other number of children: 0 current occupational status: employed current occupation: teacher kindergarden pets and animals: Yes history of recent travel: No ([facility]) sexually active: Yes Smoking Status: Never smoker alcohol intake: never substance use type: does not use caffeine: Yes Type: coffee eating out: 1-3 times/week during the past year weight has: remained stable what type of physical activity do you participate in: walking frequency: 3-4 times per week mellissa/synagogue: Yarsani seatbelt use: always do you feel safe at home: Yes additional social history: [place]- . [place] History 1 Elective abortions Hx Para 0 Spontaneous abortions Hx # Term Pregnancies Ectopic pregnancies Hx # Pregnancies Multiple births # of living children 0 HPI Encounter for routine gynecological examination Details: DOUG STILES is a 24 year old who presents for annual exam. She would like to discuss family planning--she reports she took a test at home on January 28 and this was a positive--repeated and still positive. She reports her LMP was December 27. Last PAP: 2023; normal. History of abnormal PAP: no Last mammogram: age 38 History of abnormal mammogram: no Colon cancer screening: age 43 Other preventative health care screenings: Sandra Ruth; PCP Female Reproductive History Last Menstrual Period: 12/27/24 Questions: metorrhagia: No, sexually active: Yes, dyspareunia: No and PCB: No ROS Const Constitutional: Reports fatigue (with nausea); Denies chills, fever(s), headache(s) or weight loss Eyes Eyes: Denies change in vision ENT ENT: Denies dizziness Cardio Card: Denies chest pain at rest or palpitations Resp Resp: Denies cough or dyspnea GI GI: Denies abdominal pain, constipation or nausea : Denies difficulty voiding, dysuria, hematuria, nipple discharge, pelvic pain, prolapse symptoms, urinary incontinence, vaginal discharge, vaginal dryness, vaginal odor or vaginal pruritus Skin Skin/Breast: Reports breast pain (currently ); Denies alopecia, rash, breast mass, breast skin changes or nipple discharge Neuro Neuro: Denies dizziness Psych Psych: Denies anxiety or depression Endo Endo: Denies cold intolerance, excessive sweating or heat intolerance Exam Const General: cooperative, healthy appearing, comfortable, no acute distress, well groomed and well hydrated Nutritional Appearance: well nourished Orientation: alert, awake and oriented x3 HENMT Head: normal to inspection and normocephalic Ears: hearing grossly normal bilaterally and external ears normal Nose: external nose normal Face and sinus: normal facial exam Eyes General: appearance normal, both eyes and all related structures Neck Neck: normal visual inspection, full ROM and no lymphadenopathy Thyroid: thyroid normal Chest Chest palpation inspection: normal inspection of the chest Breast inspection: normal inspection of the breasts and normal inspection of the axillae Breast palpation: normal palpation of the breasts, normal palpation of the axillae and no axillary lymphadenopathy Resp Effort Inspection: normal respiratory effort, able to speak in complete sentences and symmetric chest movement GI Inspection: normal to inspection Palpation: soft and no hepatosplenomegaly General: bladder normal to palpation External Female Exam: normal external appearance and normal appearance of the urethra Urethra: normal appearance of the urethra Speculum Exam - Vagina: normal appearance of the vagina, normal vaginal discharge, no lesions (more content not included)... [facility] ) TOMMYMICHAELLEDOUG Piper ([id number]) 2000 F Date Time Provider Department 02/06/24 11:00 AM KYE JORGENSEN [facility] [[email or web address]] During your visit today, we recorded the following information about you: Temperature Pulse Respiration Blood pressure 98.5 degrees 72/minute 16/minute 142/72 Weight 73 kg Kye Jorgensen APRN.SHIPPING ROOM SUPERVISOR 02/06/2024 12:02 PM Signed This note was created using NoteWriter. Subjective Doug Piper Elder is a 23 year old female. 23 year old female with no significant PMH presents for rash. Acute onset Friday Raised and red rash +itchy Denies fever or chills Denies URI sx Denies SOB or dyspnea Denies drainage Denies malaise or fatigue Denies new medicines, foods, soaps or lotions. States that she was fishing Friday night The history is provided by the patient. No speech and language specialist was used. Rash This is a new problem. The current episode started in the past 7 days. The problem is unchanged. Location: arms, neck and hands. The rash is characterized by redness and itchiness. She was exposed to plant contact. Pertinent negatives include no anorexia, congestion, cough, diarrhea, eye pain, facial edema, fatigue, fever, joint pain, nail changes, rhinorrhea, shortness of breath, sore throat or vomiting. Past treatments include nothing. The treatment provided no relief. There is no history of allergies, asthma, eczema or varicella. No past medical history on file. No past surgical history on file. ALLERGIES Patient has no known allergies. MEDICATIONS predniSONE (DELTASONE) 10 mg tablet Take 4 tabs daily for 3 days, then 2 tabs daily for 3 days, then 1 tab daily for 3 days with food. famotidine (PEPCID) 20 mg tablet Take 1 tablet by mouth at bedtime as needed. ibuprofen (MOTRIN ORAL) Take by mouth. No family history on file. Social History Tobacco Use Smoking status: Never Smokeless tobacco: Never Substance Use Topics Alcohol use: Never Drug use: Never Review of Systems Constitutional: Negative for activity change, appetite change, fatigue and fever. HENT: Negative for congestion, rhinorrhea and sore throat. Eyes: Negative for pain. Respiratory: Negative for apnea, cough, chest tightness and shortness of breath. Cardiovascular: Negative for chest pain, palpitations and leg swelling. Gastrointestinal: Negative for abdominal pain, anorexia, diarrhea and vomiting. Musculoskeletal: Negative for joint pain. Skin: Positive for rash. Negative for nail changes. Allergic/Immunologic: Negative for environmental allergies, food allergies and immunocompromised state. Neurological: Negative for dizziness, facial asymmetry, light-headedness and headaches. Hematological: Negative for adenopathy. Does not bruise/bleed easily. Psychiatric/Behaviora l: Negative for agitation and behavioral problems. Objective BP 142/72 Pulse 72 Temp 36.9 ?C (98.5 ?F) Resp 16 Wt 73 kg (160 lb 15 oz) LMP 08/15/2022 SpO2 97% Physical Exam Vitals and nursing note reviewed. Constitutional: General: She is not in acute distress. Appearance: Normal appearance. She is normal weight. She is not ill-appearing, toxic-appearing or diaphoretic. HENT: Head: Normocephalic and atraumatic. Right Ear: Ear canal and external ear normal. Left Ear: Ear canal and external ear normal. Nose: Nose normal. No congestion or rhinorrhea. Mouth/Throat: Mouth: Mucous membranes are moist. Pharynx: No oropharyngeal exudate or posterior oropharyngeal erythema. Eyes: General: Right eye: No discharge. Left eye: No discharge. Extraocular Movements: Extraocular movements intact. Conjunctiva/sclera: Conjunctivae normal. Pupils: Pupils are equal, round, and reactive to light. Cardiovascular: Rate and Rhythm: Normal rate and regular rhythm. Pulses: Normal pulses. Heart sounds: Normal heart sounds. No murmur heard. No friction rub. Pulmonary: Effort: Pulmonary effort is normal. No respiratory distress. Breath sounds: Normal breath sounds. No stridor. No wheezing, rhonchi or rales. Chest: Chest wall: No tenderness. Abdominal: General: Abdomen is flat. There is no distension. Palpations: Abdomen is soft. There is no mass. Tenderness: There is no abdominal tenderness. There is no right CVA tenderness, left CVA tenderness, guarding or rebound. Hernia: No hernia is present. Musculoskeletal: General: No swelling, tenderness, deformity or signs of injury. Normal range of motion. Cervical back: Normal range of motion and neck supple. No rigidity. Right lower leg: No edema. Left lower leg: No edema. Lymphadenopathy: Cervical: No cervical adenopathy. Skin: General: Skin is warm and dry. Capillary Refill: Capillary refill takes less than 2 seconds. Coloration: Skin is not jaundiced or pale. Findings: Rash present. No bruising, erythema or lesion. Comments: B/L f (more content not included)... Normal [facility] CNOVon 11-08-2023 CNOV Office Visit (UCWSTR ) DOUG STILES ([id number]) 2000 F Date Time Provider Department 11/08/23 10:15 AM JUAN JERNIGAN [facility] [[email or web address]] During your visit today, we recorded the following information about you: Temperature Pulse Respiration Blood pressure 97.3 degrees 114/minute 18/minute 128/70 Weight 75.4 kg Juan Jernigan PA 11/08/2023 10:25 AM Signed This note was created using [employer] Human[employer]. Subjective Doug Stiles is a 22 year old female. HPI 22-year-old female presents for sore throat. Patient states sore throat started yesterday. She did have strep 3 weeks ago and finish all of her medication. She states that she felt better after finishing the medication and symptoms were completely resolved. She states yesterday she started getting sore throat again. 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 She thinks she may have gotten strep again. She did change her toothbrush out and Sticks out after being on the amoxicillin for 24 hours last time. No vomiting. Still able to eat and drink. She states she had a temp of 99.5 ?F this morning. Has not taken any Tylenol or Motrin. No past medical history on file. No past surgical history on file. ALLERGIES Patient has no known allergies. MEDICATIONS ibuprofen (MOTRIN ORAL) Take by mouth. amoxicillin (AMOXIL) 400 mg/5 mL suspension Take 6.3 mL by mouth two times a day for 10 days. No family history on file. Social History Tobacco Use Smoking status: Never Smokeless tobacco: Never Substance Use Topics Alcohol use: Never Drug use: Never Review of Systems Constitutional: Negative for chills and fever. HENT: Positive for sore throat. Negative for congestion and ear pain. Respiratory: Negative for cough and shortness of breath. Cardiovascular: Negative for chest pain. Gastrointestinal: Negative for diarrhea and vomiting. Objective BP 128/70 Pulse 114 Temp 36.3 ?C (97.3 ?F) Resp 18 Wt 75.4 kg (166 lb 3.6 oz) LMP 08/15/2022 SpO2 97% Physical Exam Vitals and nursing note reviewed. Constitutional: General: She is not in acute distress. Appearance: Normal appearance. She is not toxic-appearing. HENT: Right Ear: Tympanic membrane and ear canal normal. Left Ear: Tympanic membrane and ear canal normal. Nose: Nose normal. Mouth/Throat: Mouth: Mucous membranes are moist. Pharynx: Uvula midline. Posterior oropharyngeal erythema present. No oropharyngeal exudate. Tonsils: Tonsillar exudate present. No tonsillar abscesses. 1+ on the right. 1+ on the left. Eyes: Conjunctiva/sclera: Conjunctivae normal. Cardiovascular: Rate and Rhythm: Normal rate and regular rhythm. Pulmonary: Effort: Pulmonary effort is normal. Breath sounds: Normal breath sounds. Neurological: Mental Status: She is alert. Assessment and Plan ASSESSMENT/PLAN: 1. 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 Symptoms did completely resolve last month when she was on amoxicillin. Will treat with amoxicillin again. - Group A strep molecular testing negative - Amoxicillin for 10 days. - Discussed supportive care treatment with fluids, rest and analgesia. - Contagious dz precautions discussed- including considered contagious until on antibiotics for 24 hours Diagnosis and treatment plan were discussed and questions were answered to the patient's satisfaction. Pt acknowledged understanding of concepts and follow up plan. Specific signs and symptoms that would indicate the need for higher level of care were discussed in detail warranting prompt ER evaluation. ARLIN Burgos Allergies As of Date: 11/08/2023 (No Known Allergies) Date Reviewed: 11/08/2023 Reviewed by: Yessy Mcpherson MA - Fully Assessed Reason for Visit: Sore Throat [200] Cmt: X1 day, recent strep Primary Visit Diagnosis:Strep pharyngitis [J02.0] Order(s):amoxicillin (AMOXIL) 400 mg/5 mL suspensionTake 6.3 mL by mouth two times a day for 10 days.Disp: 126 mLRfl: 0 STREP A MOLECULAR (POC) [[id number]] Order #: [id number] #:[id number] Prescriptions as of 11/08/2023 - amoxicillin (AMOXIL) 400 mg/5 mL suspension Take 6.3 mL by mouth two times a day for 10 days. - ibuprofen (MOTRIN ORAL) Take by mouth. Problem List As Of Date: 11/08/2023 (None) Prescriptions ordered this encounter Disp Refills Start End AMOXICILLIN 400 MG/5 ML ORAL SUSPENS* 126 * 0 11/08/2023 11/18/2023 Route: ORAL Sig: Take 6.3 mL by mouth two times a day for 10 days. Encounter Status:Closed by JUAN JERNIGAN on 11/08/[address] [facility] STREP A MOLECULAR (POC)on Procedural Control Valid [facility] Strep A (POCT) Positive Abnormal Negative [facility] CNOVon 10-20-2023 CNOV Office Visit (UCWSTR ) DOUG STILES ([id number]) 2000 F Date Time Provider Department 10/20/23 12:45 PM CONSTANTIN SOLIS [facility] [[email or web address]] During your visit today, we recorded the following information about you: Temperature Pulse Respiration Blood pressure 99.6 degrees 100/minute 18/minute 118/80 Weight 74.9 kg Constantin Solis APRN.SHIPPING ROOM SUPERVISOR 10/20/2023 1:39 PM Signed This note was created using [employer]. Subjective Dougcollin Stiles is a 22 year old female. HPI Pt developed uri symptoms about a week ago. Yesterday she started with a sore throat and fever. Review of Systems Constitutional: Positive for fever. HENT: Positive for sore throat. Negative for rhinorrhea. Respiratory: Negative for cough. All other systems reviewed and are negative. Objective BP 118/80 Pulse 100 Temp 37.6 ?C (99.6 ?F) (Tympanic) Resp 18 Wt 74.9 kg (165 lb 2 oz) LMP 08/15/2022 SpO2 100% Physical Exam Vitals and nursing note reviewed. Constitutional: General: She is not in acute distress. Appearance: Normal appearance. She is not ill-appearing. HENT: Head: Normocephalic. Mouth/Throat: Mouth: Mucous membranes are moist. Pharynx: Posterior oropharyngeal erythema present. Eyes: Conjunctiva/sclera: Conjunctivae normal. Cardiovascular: Rate and Rhythm: Normal rate and regular rhythm. Pulmonary: Effort: Pulmonary effort is normal. Breath sounds: Normal breath sounds. Musculoskeletal: General: Normal range of motion. Cervical back: Normal range of motion. Skin: General: Skin is warm and dry. Neurological: General: No focal deficit present. Mental Status: She is alert. Psychiatric: Mood and Affect: Mood normal. Behavior: Behavior normal. Assessment and Plan ASSESSMENT/PLAN: 1. Strep throat - ICD9: 034.0, ICD10: J02.0 - suspect strep - Rapid Strep positive in the office today - Discussed supportive care treatment with fluids, rest and analgesia. - The patient may also use warm salt water gargles, throat lozenges and/or OTC throat spray as needed and nasal saline gtts and suction prn. - Contagious dz precautions discussed- including considered contagious until on antibiotics for 24 hours - The patient should follow up in 3-5 days if symptoms persist or worsen - Call back if drooling, increased temperature, symptoms of dehydration and/or still sick in one week - AMOXICILLIN 400 MG/5 ML ORAL SUSPENSION Constantin Solis APRN.CNP Allergies As of Date: 10/20/2023 (No Known Allergies) Date Reviewed: 10/20/2023 Reviewed by: Constantin Solis APRN.EMILIA - Fully Assessed Reason for Visit: Sore Throat [200] Cmt: ST and fever x 2 days Primary Visit Diagnosis:Strep throat [J02.0] Order(s):STREP A MOLECULAR (POC) [[id number]] Order #: [id number]. #:[id number] amoxicillin (AMOXIL) 400 mg/5 mL suspensionTake 10 mL by mouth two times a day for 10 days.Disp: 200 mLRfl: 0 Prescriptions as of 10/20/2023 - amoxicillin (AMOXIL) 400 mg/5 mL suspension Take 10 mL by mouth two times a day for 10 days. - ibuprofen (MOTRIN ORAL) Take by mouth. Problem List As Of Date: 10/20/2023 (None) Prescriptions ordered this encounter Disp Refills Start End AMOXICILLIN 400 MG/5 ML ORAL SUSPENS* 200 * 0 10/20/2023 10/30/2023 Route: ORAL Sig: Take 10 mL by mouth two times a day for 10 days. Letter Text Encounter Status:Closed by CONSTANTIN SOLIS on 10/20/[address] [facility] STREP A MOLECULAR (POC)on Procedural Control Valid [facility] Strep A (POCT) Positive Abnormal Negative [facility] Vital Signs Date Time Vital Sign Value Performing Clinician Facility 04-20-2025 15:34-0400 Body height 172.[address] Sandra Ruth MD Work Phone: 5(709)044-515057 [place] [address] 04-20-2025 15:34-0400 Body mass index (BMI) [Ratio] 27.8 kg/m2 Dr. Sandra Ruth MD Work Phone: 3(047)714-332957 [place] [address] 04-20-2025 15:34-0400 Body weight [address] Sandra Ruth MD Work Phone: 6(862)559-969957 [place] [address] 04-20-2025 15:34-0400 Diastolic blood pressure 85 mm[Hg] Dr. Sandra Ruth MD Work Phone: 7(141)247-997657 [place] [address] 04-20-2025 15:34-0400 Systolic blood pressure 134 mm[Hg] Dr. Sandra Ruth MD Work Phone: 5(541)142-154262 [place] [address] 03-24-2025 15:46-0400 Body height 172.[address] Sandra Ruth MD Work Phone: 0(774)176-296962 [place] [address] 03-24-2025 15:46-0400 Body mass index (BMI) [Ratio] 27.2 kg/m2 Dr. Sandra Ruth MD Work Phone: 5(113)298-416062 [place] [address] 03-24-2025 15:46-0400 Body weight 81.[address] Sandra Ruth MD Work Phone: 6(870)554-271257 [place] [address] 03-24-2025 15:46-0400 Diastolic blood pressure 87 mm[Hg] Dr. Sandra Ruth MD Work Phone: 6(492)626-413057 [place] [address] 03-24-2025 15:46-0400 Systolic blood pressure 130 mm[Hg] Dr. Sandra Ruth MD Work Phone: 9(935)172-144051 [address] 02-22-2025 14:32-0400 Body height 172.[address] Sandra Ruth MD Work Phone: 5(518)482-799957 [place] [address] 02-22-2025 14:30-0400 Body mass index (BMI) [Ratio] 26.3 kg/m2 Dr. Sandra Ruth MD Work Phone: 7(801)409-796057 [place] [address] 02-22-2025 14:30-0400 Body weight 78.[address] Sandra Ruth MD Work Phone: 7(990)726-188157 [place] [address] 02-22-2025 14:30-0400 Diastolic blood pressure 84 mm[Hg] Dr. Sandra Ruth MD Work Phone: 6(753)130-679657 [place] [address] 02-22-2025 14:30-0400 Systolic blood pressure 132 mm[Hg] Dr. Sandra Ruth MD Work Phone: 8(082)229-566257 [place] [address] 02-18-2025 09:07-0400 Body mass index (BMI) [Ratio] 26 kg/m2 Dr. Sandra Ruth MD Work Phone: 0(592)618-598257 [place] [address] 02-18-2025 09:07-0400 Body weight 77.[address] Sandra Ruth MD Work Phone: 5(438)121-239557 [place] [address] 02-18-2025 09:07-0400 Diastolic blood pressure 66 mm[Hg] Dr. Sandra Ruth MD Work Phone: 6(791)922-690657 [place] [address] 02-18-2025 09:07-0400 Systolic blood pressure 110 mm[Hg] Dr. Sandra Ruth MD Work Phone: 8(954)680-678957 [place] [address] 02-09-2025 09:37-0400 Diastolic blood pressure 81 mm[Hg] Dr. Sandra Ruth MD Work Phone: 0(355)463-698757 [place] [address] 02-09-2025 09:37-0400 Systolic blood pressure 122 mm[Hg] Dr. Sandra Ruth MD Work Phone: 0(937)152-231257 [place] [address] 02-09-2025 09:04-0400 Body height 172.[address] Sandra Ruth MD Work Phone: 5(323)213-119557 [place] [address] 02-09-2025 09:04-0400 Body mass index (BMI) [Ratio] 25.9 kg/m2 Dr. Sandra Ruth MD Work Phone: [facility] 02-09-2025 09:04-0400 Body weight 77.[address] Sandra Ruth MD Work Phone: [facility] 02-06-2024 11:02-0400 Body temperature 98.49 [degF] Kye Jorgensen TYPE CASTING MACHINE OPERATOR.SHIPPING ROOM SUPERVISOR Work Phone: [facility] 02-06-2024 11:02-0400 Body weight 73 kg Kye Jorgensen TYPE CASTING MACHINE OPERATOR.SHIPPING ROOM SUPERVISOR Work Phone: [facility] 02-06-2024 11:02-0400 Diastolic blood pressure 72 mm[Hg] Kye Jorgensen TYPE CASTING MACHINE OPERATOR.SHIPPING ROOM SUPERVISOR Work Phone: [facility] 02-06-2024 11:02-0400 Heart rate 72 /min Kye Jorgensen TYPE CASTING MACHINE OPERATOR.SHIPPING ROOM SUPERVISOR Work Phone: [facility] 02-06-2024 11:02-0400 Respiratory rate 16 /min Kye Jorgensen TYPE CASTING MACHINE OPERATOR.SHIPPING ROOM SUPERVISOR Work Phone: [facility] 02-06-2024 11:02-0400 SaO2% (BldA) [Mass fraction] 97 % Kye Jorgensen TYPE CASTING MACHINE OPERATOR.SHIPPING ROOM SUPERVISOR Work Phone: [facility] 02-06-2024 11:02-0400 Systolic blood pressure 142 mm[Hg] Kye Jorgensen TYPE CASTING MACHINE OPERATOR.SHIPPING ROOM SUPERVISOR Work Phone: [facility] 11-08-2023 10:13-0400 Body temperature 97.3 [degF] Krislyn Aberegg PA Work Phone: [facility] 11-08-2023 10:13-0400 Body weight 75.4 kg Krislyn Aberegg PA Work Phone: [facility] 11-08-2023 10:13-0400 Diastolic blood pressure 70 mm[Hg] Krislyn Aberegg PA Work Phone: [facility] 11-08-2023 10:13-0400 Heart rate 114 /min Krislyn Aberegg PA Work Phone: [facility] 11-08-2023 10:13-0400 Respiratory rate 18 /min Krislyn Aberegg PA Work Phone: [facility] 11-08-2023 10:13-0400 SaO2% (BldA) [Mass fraction] 97 % Krislyn Aberegg PA Work Phone: [facility] 11-08-2023 10:13-0400 Systolic blood pressure 128 mm[Hg] Krislyn Aberegg PA Work Phone: [facility] 10-20-2023 13:17-0400 Body temperature 99.61 [degF] Constantin Moomaw TYPE CASTING MACHINE OPERATOR.SHIPPING ROOM SUPERVISOR Work Phone: [facility] 10-20-2023 13:17-0400 Body weight 74.9 kg Constantin Moomaw TYPE CASTING MACHINE OPERATOR.SHIPPING ROOM SUPERVISOR Work Phone: [facility] 10-20-2023 13:17-0400 Diastolic blood pressure 80 mm[Hg] Constantin Moomaw TYPE CASTING MACHINE OPERATOR.SHIPPING ROOM SUPERVISOR Work Phone: [facility] 10-20-2023 13:17-0400 Heart rate 100 /min Constantin Moomaw TYPE CASTING MACHINE OPERATOR.SHIPPING ROOM SUPERVISOR Work Phone: [facility] 10-20-2023 13:17-0400 Respiratory rate 18 /min Constantin Moomaw TYPE CASTING MACHINE OPERATOR.SHIPPING ROOM SUPERVISOR Work Phone: [facility] 10-20-2023 13:17-0400 SaO2% (BldA) [Mass fraction] 100 % Constantin Moomaw TYPE CASTING MACHINE OPERATOR.SHIPPING ROOM SUPERVISOR Work Phone: [facility] 10-20-2023 13:17-0400 Systolic blood pressure 118 mm[Hg] Constantin Moomaw TYPE CASTING MACHINE OPERATOR.SHIPPING ROOM SUPERVISOR Work Phone: [facility] 08-22-2022 14:43-0500 Body temperature 99 [degF] Kan Hernandez TYPE CASTING MACHINE OPERATOR.SHIPPING ROOM SUPERVISOR Work Phone: [facility] 08-22-2022 14:43-0500 Body weight 82.37 [facility] TYPE CASTING MACHINE OPERATOR.SHIPPING ROOM SUPERVISOR Work Phone: [facility] 08-22-2022 14:43-0500 Diastolic blood pressure 72 mm[Hg] [facility] TYPE CASTING MACHINE OPERATOR.SHIPPING ROOM SUPERVISOR Work Phone: [facility] 08-22-2022 14:43-0500 Heart rate 94 /min [facility] TYPE CASTING MACHINE OPERATOR.SHIPPING ROOM SUPERVISOR Work Phone: [facility] 08-22-2022 14:43-0500 Respiratory rate 18 /min [facility] TYPE CASTING MACHINE OPERATOR.SHIPPING ROOM SUPERVISOR Work Phone: [facility] 08-22-2022 14:43-0500 SaO2% (BldA) [Mass fraction] 97 % [facility] TYPE CASTING MACHINE OPERATOR.SHIPPING ROOM SUPERVISOR Work Phone: [facility] 08-22-2022 14:43-0500 Systolic blood pressure 124 mm[Hg] [facility] TYPE CASTING MACHINE OPERATOR.SHIPPING ROOM SUPERVISOR Work Phone: [facility] Encounters Encounter Date Encounter Type Care Provider Facility Start: 05-19-2025 End: 05-19-2025 ambulatory Melony Morris Yarelis Facility:[facility] Start: 05-12-2025 End: 05-12-2025 ambulatory MD [facility] Start: 04-20-2025 End: 04-20-[address] Sunni Moise MD [facility] Work Phone: Start: 04-20-2025 End: 04-20-[address] Sandra Ruth MD Work Phone: -[facility] Start: 03-24-2025 End: 03-24-[address] Sunni Moise MD -[facility] Work Phone: Start: 03-24-2025 End: 03-24-[address] Sandra Ruth MD Work Phone: -[facility] Start: 02-22-2025 End: 02-22-[address] Sandra Ruth MD Work Phone: -[facility] Start: 02-22-2025 End: 02-22-[address] Melony Cruz DO [facility] Start: 02-22-2025 End: 02-22-[address] Melony Cruz DO [facility] Work Phone: Start: 02-22-2025 End: 02-22-[address] Sandra Ruth MD Work Phone: [facility] Start: 02-22-2025 End: 02-22-2025 ambulatory Melony Cruz Facility:[facility] Start: 02-18-2025 End: 02-18-[address] Sunni Moise MD -[facility] Work Phone: Start: 02-18-2025 End: 02-18-[address] Sandra Ruth MD Work Phone: [facility] Start: 02-09-2025 End: 02-09-2025 Patient encounter procedure Sury LAMB [facility] Work Phone: Start: 02-09-2025 End: 02-09-2025 Patient encounter status Sury LAMB [facility] Start: 02-09-2025 End: 02-09-[address] Sandra Ruth MD Work Phone: [facility] Start: 02-06-2024 End: 02-06-2024 ambulatory Facility:[facility] Start: 02-06-2024 End: 02-06-2024 Patient encounter procedure Kye Jorgensen APRN.CNP Work Phone: [facility] Comment on above: Dermatitis due to pl ants, including poison eugenio, sumac, and oak (Primary Dx) Start: 11-08-2023 End: 11-08-2023 ambulatory Facility:[facility] Start: 11-08-2023 End: 11-08-2023 Patient encounter procedure Juan Jernigan PA Work Phone: [facility] Comment on above: Strep pharyngitis (P rimary Dx) Start: 10-20-2023 End: 10-20-2023 ambulatory Facility:[facility] Start: 10-20-2023 End: 10-20-2023 Patient encounter procedure Constantin Solis TYPE CASTING MACHINE OPERATOR.SHIPPING ROOM SUPERVISOR Work Phone: [facility] Comment on above: Strep throat (Primar y Dx) Start: 08-22-2022 End: 08-22-2022 Office outpatient new 20 minutes Kan Mondragonbelen TYPE CASTING MACHINE OPERATOR.SHIPPING ROOM SUPERVISOR Work Phone: [facility] Comment on above: Throat pain (Primary Dx) Procedures Date Procedure Procedure Detail Performing Clinician Start: 02-22-2025 Hepatitis C antibody measurement Dr. Sandra Ruth MD Work Phone: Comment on above: Reactive: Presumptiv e evidence of antibodies to HCV. Follow CDC recommendations for supplemental testing.Non-Reactive: Antibodies to HCV were not detected; does not exclude the possibility of exposure to HCVReactive Results are presumptive evidence of antibodies to HCV. Follow CDC recommendations for supplemental testing.Order confirmation testing: HCV Quant by PCR testing - HCVPCR #[id number] Non Reactive: < 0.8 Equivocal: >/= 0.8 to < 1.0 Reactive: >/= 1.0The CDC requires that a reactive/equivocal HCV antibody result be sent out for confirmation. HCV Quant by PCR testing. Start: 02-22-[address] Sandra Ruth MD Work Phone: Comment on above: Antibody Result: Int erpretationNon-Reactive: Non- ImmuneReactive: ImmuneThe following results were obtained with the [employer] Rubella IgG assay. Results from assays of other manufacturers cannot be used interchangeably. Start: 02-22-2025 Serologic test for syphilis Dr. Sandra Ruth MD Work Phone: Start: 02-22-[address] Alejo Ruth MD Work Phone: Start: 11-08-2023 STREP A MOLECULAR (POC) [facility] Provider Start: 10-20-2023 STREP A MOLECULAR (POC) [facility] Provider Plan of Treatment Date Care Activity Detail Author Start: 02-22-2025 CBC W Auto Different ial panel - Blood [facility] Start: 02-22-2025 Hepatitis C antibody measurement [facility] Start: 02-22-2025 Rubella IgG measurement [facility] Start: 02-22-2025 Serologic test for syphilis [facility] Start: 02-22-2025 [facility] Start: 03-28-2024 Influenza vaccination [facility] Start: 07-28-2023 Behavioral Health Screening Behavioral Health Screening [facility] Start: 07-28-2023 Depression Assessment Depression Ass [facility] Start: 03-28-2023 Covid-19 Vaccine ( season) Covid-19 Vaccine ( season) [facility] Start: 03-28-2023 Influenza vaccination Influenza Vacc ine (#1) [facility] Start: 07-28-2022 [facility] Start: 03-28-2022 Influenza vaccination INFLUENZA (#1) [facility] Start: 01-02-2022 Urine microalbumin profile DTa P,Tdap,Td Vaccine (7 - Td or Tdap) [facility] Start: 12-19-2019 PAP TESTING PAP TESTING [facility] Start: 12-19-2019 Screening for malign ant neoplasm of cervix [facility] Start: 2017 Urine microalbumin profile DTAP,TDAP ,TD (1 - Tdap) [facility] Start: 2016 CHLAMYDIA SCREENING (18-24) CHLAMYDIA SCREENING (18-24) [facility] Start: 2016 GC (GONORRHEA) SCREE MICAH (18-24) GC (GONORRHEA) SCREENING (18-24) [facility] Start: 2016 HEPATITIS C SCREENING HEPATITIS C [facility] Start: 2016 Hepatitis C screening Hepatitis C [facility] Start: 2016 HIV SCREENING HIV SCREENING [facility] Start: 2016 HIV screening HIV Screening [facility] Start: 2014 Meningococcal B Vacc ine: Consider Based On Risk (1 of 2 - Patient Seeks Protection) Meningococcal B Vaccine: Consider Based On Risk (1 of 2 - Patient Seeks Protection) [facility] Start: 2013 HPV Vaccine (1 - 3-d ose series) HPV Vaccine (1 - 3-dose series) [facility] Start: 2012 PEDS TO ADULT TRANSI TION ANNUAL ASSESSMENT PEDS TO ADULT TRANSITION ANNUAL ASSESSMENT [facility] Start: 2010 PEDS TO ADULT TRANSI TION INITIAL DISCUSSION PEDS TO ADULT TRANSITION INITIAL DISCUSSION [facility] Start: 2009 HPV VACCINE (1 - 2-d ose series) HPV VACCINE (1 - 2-dose series) [facility] Start: 2008 MENINGOCOCCAL B: Con cut order hand based on risk (1 of 2 - Risk Bexsero 2-dose series) MENINGOCOCCAL B: Consider based on risk (1 of 2 - Risk Bexsero 2-dose series) [facility] Start: 06-20-1999 COVID-19 VACCINE (#1) COVID-19 VACCI NE (#1) [facility] Start: 1998 HEPATITIS B (1 of 3 - 3-dose series) HEPATITIS B (1 of 3 - 3-dose series) [facility] Chlamydia deoxyribon ucleic acid detection [facility] Erythrocyte mean corpuscular volume determination [facility] Hematocrit [Volume Fraction] of Blood [facility] Hemoglobin [Mass/vol ume] in Blood [facility] Hepatitis B virus yun rface Ag [Presence] in Serum [facility] Leukocytes [#/volume ] in Blood [facility] Mean corpuscular hemoglobin concentration determination [facility] Mean corpuscular hemoglobin determination [facility] Neutrophil count [facility] Neutrophil percent differential count [facility] Platelets [#/volume] in Blood [facility] Red blood cell count [facility] Red cell distributio n width determination [facility] STREP A MOLECULAR (POC) STREP A MOLECULAR (POC) Microbiology Routine Throat pain Ordered: 08/22/2022 [facility] Work Phone: Comment on above: Ordered: 08/22/2022 [facility] Payers Date Payer Category Payer Self-pay 2023 Unknown [id number] 2022 Unknown [id number] 1998 Unknown [id number] [id number] Unknown [id number] 2.16.8 [id number] Unknown [id number] 2.16.8 [id number] Unknown [id number] 2.16.8 [id number] Unknown [id number] 2.16.8 [id number] Unknown [id number] 2.16.8 [id number] Unknown [id number] 2.16.8 [id number] Unknown [id number] 2.16.8 [id number] Social History Date Type Detail Facility Start: 08-22-2022 End: 02-18-2025 Tobacco smoking status NHIS Never smoked tobacco [facility] Start: 08-22-2022 Tobacco use and exposure Smokeless tobacco non-user [facility] Start: 08-22-2022 End: 02-06-2024 Alcohol intake Lifetime non-drinker (finding) [facility] Start: 2000 Sex Assigned At Not on file [facility] Start: 10-20-2023 End: 02-06-2024 History of Social function [facility] Start: 10-20-2023 End: 02-06-2024 Tobacco use panel [facility] Start: 2000 Sex Assigned At Female W [facility] Clinical Notes 08-22-2022 to 04-20-2025 Note Date & Type Note Facility 04-20-2025 Progress note [facility] 04-20-2025 Progress note Note Date/Time April 20, 2025 3:52pm [facility] [address], [address] [place] [address] OFFICE VISIT Date of Service: 04/20/25 MR#: [id number] Acct: [id number] Name: DOUG STILES Rep #: [id number] : 2000 Provider: Dr. Marcelino Moise MD Age/Sex: 24/F Location: [facility] [place] Status: Signed Intake Vital Signs 02/09/25 10:14 02/22/25 14:32 03/24/25 15:46 04/20/25 15:34 Height 5 ft 8 in 5 ft 8 in 5 ft 8 in 5 ft 8 in Weight: 183 lb BMI 27.8 BP 134/85 H Intake Visit Reasons: 16wk OB Chief Complaint: 16wk OB Web Publisher Required: No Is patient in pain?: No Allergies No Known Allergies Allergy (Verified 04/20/25 15:31) Medications ?Medication ?Instructions ?Recorded ?Confirmed ?Type docosahexaenoic acid 200 mg mg PO 02/18/25 04/20/25 Hi story capsule ( DHA) Last Menstrual Period: 12/27/24 : No PFSH PFSH Surgical History [place] teeth extracted Family History Brother Asthma Social History adopted: No household members: spouse number of children: 0 current occupational status: employed 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/hazards: No pets and animals: Yes pets and animals: dog(s) history of recent travel: Yes ([facility] - January 2025) out of state: Yes out of country: No sexually active: Yes Smoking Status: Never smoker second hand exposure: No alcohol intake: current alcohol intake frequency: holidays/special occasions only details: Not while substance use type: does not use well-balanced diet: about half the time caffeine: Yes Type: coffee eating out: 1-3 times/week during the past year weight has: remained stable what type of physical activity do you participate in: walking frequency: 3-4 times per week duration: 15-30 minutes/day mellissa/synagogue: Yarsani seatbelt use: always do you feel safe at home: Yes additional social history: : Shyler - [employer] History 1 Elective abortions 0 Hx Para 0 Spontaneous abortions 0 Hx # Term Pregnancies Ectopic pregnancies Hx # Pregnancies Multiple births # of living children 0 HPI 16wk OB Details: DOUG STILES is a 24 year old who presents for routine OB visit. OB Visit SARAVANAN Calculator Estimated Delivery Date Method Current WG Current Estimate 10/03/25 LMP (Certain) 16w 2d Expected Delivery Route/Plan Labor Preferences- CB/BF classes: [] labor support person: [] labor intervention preferences: [] pain management options preferred: [] cut cord/dad catch: [] : [] PP control planned: [] discussed possible routes of delivery and associated risks: [] special requests: [] Specific Issue/Plans Covid status: [] Flu vaccine: [] Tdap vaccine: [] Rhogam: [] LARC form signed: [] Problem list reviewed and updated with the most current plan of care details and appropriate orders placed. Relevant counseling for the gestational age provided. Continue routine care and follow up unless otherwise noted in visit notes/problem list details Initial Weight: 173 lb Date -?-?-?-?-?-?-?-?-?-?-?-?- EGA Weight BP Urine Prot -?-?-?-?-?--?-?-?-?-?-?-?- Glucose FHR FuHt Pres Dilation -?-?-?-?-?-?-?-?-?-?-?--?- Effaced St Visit Note 02/22/25 -?-?-?-?-?-?-?-?-?-?-?-?- 8w 1d 173 lb 2 oz (+2 oz) 132/84 -?-?-?-?-?-?-?-?-?-?-?-?- 165 -?-?-?-?-?-?-?-?-?-?-?-?- JV- CRL consiste nt with LMP. declines NIPT. 03/24/25 -?-?-?-?-?-?-?-?-?-?-?-?- 12w 3d 179 lb 5 oz (+6 lb 5 oz) 130/87 -?-?-?-?-?-?-?-?-?-?-?-?- 155 -?-?-?-?-?-?-?-?-?-?-?-?- SM- no vb crampi ng 04/20/25 -?-?-?-?-?-?-?-?-?-?-?-?- 16w 2d 183 lb (+10 lb) 134/85 Negative -?-?-?-?-?-?-?-?-?-?-?-?- Negative 145 -?-?-?-?-?-?-?-?-?-?-?-?- Sm- no vb crampi ng ACOG First Trimester First Trimester: Desire for , Alcohol, Tobacco Cessation, Illicit/Recreational Drug/Substance Use, Intimate Partner Violence, Barriers to care, Unstable Housing, Communication Barriers, Environmental/Work Hazards, Anticipated Course of Care, Toxoplasmosis Precations, Use of Any medications, Sexual activity, Exercise, Dental Care, Sauna/Hot tub use, Seat Belt use, Childbirth classes/Hospital facilities, Travel, Indications for Ultrasound and Screening for Aneuploidy; Discussed Results POC Urinalysis 2 Dip (Clinic) Office Urine Glucose Negative Last Edit by Radha Disla on 04/20/25 15:38 Office Urine Protein Negative Last Edit by Radha Disla on 04/20/25 15:38 Coding Level of Care Code OB Routine Diagnoses Supervision of normal Z34.90 16 weeks gestation of Z3A.16 Weeks of gestation: 16 weeks Assessment and Plan Assessment and Plan (1) Supervision of normal : Status: Acute Comment: PRR, , SARAVANAN 10/03/25, : Ry (2) : Status: Acute Qualifiers: Weeks of gestation: 16 weeks Qualified Code(s): Z3A.16 - 16 weeks gestation of Comment: Discussed genetic/carrier, afp declined. Orders: Orders POC Urinalysis 2 Dip (Clinic) Today 04/20/25 7002 <Electronically signed by Sunni stephen MD> Date _ Sunni Moise MD Cosigner Signature: Date (if applicable) CC: ~ [facility] Work Phone: 1(411) 750-998408-28-2025 [facility] [address], [address] [place] [address] OFFICE VISIT Date of Service: 03/24/25 MR#: [id number] Acct: [id number] Name: DOUG STILES Rep #: [id number] : 2000 Provider: Dr. Marcelino Moise MD Age/Sex: 24/F Location: [facility] – [place] Status: Signed Intake Vital Signs 02/09/25 10:14 02/22/25 14:32 03/24/25 15:46 Height 5 ft 8 in 5 ft 8 in 5 ft 8 in Weight: 179 lb 5 oz BMI 27.2 BP 130/87 H Intake Visit Reasons: 12wk OB Web Publisher Required: No Is patient in pain?: No Feel stressed/tense/nervous/anxious/difficulty sleeping: not at all Allergies No Known Allergies Allergy (Verified 03/24/25 15:44) Medications ?Medication ?Instructions ?Recorded ?Confirmed ?Type docosahexaenoic acid 200 mg mg PO 02/18/25 03/24/25 Hi story capsule ( DHA) Last Menstrual Period: 12/27/24 Zika: Zika virus screening: Negative : No PFSH PFSH Surgical History [place] teeth extracted Family History Brother Asthma Social History adopted: No household members: spouse number of children: 0 current occupational status: employed 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/hazards: No pets and animals: Yes pets and animals: dog(s) history of recent travel: Yes ([facility] - January 2025) out of state: Yes out of country: No sexually active: Yes Smoking Status: Never smoker second hand exposure: No alcohol intake: current alcohol intake frequency: holidays/special occasions only details: Not while substance use type: does not use well-balanced diet: about half the time caffeine: Yes Type: coffee eating out: 1-3 times/week during the past year weight has: remained stable what type of physical activity do you participate in: walking frequency: 3-4 times per week duration: 15-30 minutes/day mellissa/synagogue: Yarsani seatbelt use: always do you feel safe at home: Yes additional social history: : Ry Pierce History 1 Elective abortions 0 Hx Para 0 Spontaneous abortions 0 Hx # Term Pregnancies Ectopic pregnancies Hx # Pregnancies Multiple births # of living children 0 HPI 12wk OB Details: DOUG STILES is a 24 year old who presents for routine OB visit. OB Visit SARAVANAN Calculator Estimated Delivery Date Method Current WG Current Estimate 10/03/25 LMP (Certain) 12w 3d Expected Delivery Route/Plan Labor Preferences- CB/BF classes: [] labor support person: [] labor intervention preferences: [] pain management options preferred: [] cut cord/dad catch: [] : [] PP control planned: [] discussed possible routes of delivery and associated risks: [] special requests: [] Specific Issue/Plans Covid status: [] Flu vaccine: [] Tdap vaccine: [] Rhogam: [] LARC form signed: [] Problem list reviewed and updated with the most current plan of care details and appropriate ordersplaced. Relevant counseling for the gestational age provided. Continue routine care and follow up unless otherwise noted in visit notes/problem list details Initial Weight: 173 lb Date -?-?-?-?-?-?-?-?-?-?-?-?- EGA Weight BP Urine Prot -?-?-?-?-?-?-?-?-?-?-?-?- Glucose FHR FuHt Pres Dilation -?-?-?-?-?-?-?-?-?-?-?-?- Effaced St Visit Note 02/22/25 -?-?-?-?-?-?-?-?-?-?-?-?- 8w 1d 173 lb 2 oz (+2 oz) 132/84 -?-?-?-?-?-?-?-?-?-?-?-?- 165 -?-?-?-?-?-?-?-?-?-?-?-?- JV- CRL consiste nt with LMP. declines NIPT. 03/24/25 -?-?-?-?-?-?-?-?-?-?-?-?- 12w 3d 179 lb 5 oz (+6 lb 5 oz) 130/87 -?-?--?-?-?-?-?-?-?-?-?-?- 155 -?-?-?-?-?-?-?-?-?-?-?-?- SM- no vb crampi ng ACOG First Trimester First Trimester: Desire for , Alcohol, Tobacco Cessation, Illicit/Recreational Drug/Substance Use, Intimate Partner Violence, Barriers to care, Unstable Housing, Communication Barriers, Environmental/Work Hazards, Anticipated Course of Care, Toxoplasmosis Precations, Use of Any med ications, Sexual activity, Exercise, Dental Care, Sauna/Hot tub use, Seat Belt use, Childbirth classes/Hospital facilities, Travel, Indications for Ultrasound and Screening for Aneuploidy; Discussed Coding Level of Care Code OB Routine Diagnoses Supervision of normal Z34.90 12 weeks gestation of Z3A.12 Weeks of gestation: 12 weeks Assessment and Plan Assessment and Plan (1) Supervision of normal : Status: Acute Comment: PRR, , SARAVANAN 10/03/25, : Ry (2) : Status: Acute Qualifiers: Weeks of gestation: 12 weeks Qualified Code(s): Z3A.12 - 12 weeks gestation of Comment: Discussed genetic/carrier testing - undecided 03/24/25 1621 zafar HAYWARD> Date _ Sunni Moise MD Cosigner Signature: Date (if applicable) CC: ~ [facility]08-28-2025 Progress note Author Sunni Moise [facility] Note Date/Time March 24, 2025 4: 21pm [facility] [address], [address] [place] [address] OFFICE VISIT Date of Service: 03/24/25 MR#: [id number] Acct: [id number] Name: DOUG STILES Rep #: [id number] : 2000 Provider: Dr. Marcelino Moise MD Age/Sex: 24/F Location: [facility] – [place] Status: Signed Intake Vital Signs 02/09/25 10:14 02/22/25 14:32 03/24/25 15:46 Height 5 ft 8 in 5 ft 8 in 5 ft 8 in Weight: 179 lb 5 oz BMI 27.2 BP 130/87 H Intake Visit Reasons: 12wk OB Web Publisher Required: No Is patient in pain?: No Feel stressed/tense/nervous/anxious/difficulty sleeping: not at all Allergies No Known Allergies Allergy (Verified 03/24/25 15:44) Medications ?Medication ?Instructions ?Recorded ?Confirmed ?Type docosahexaenoic acid 200 mg mg PO 02/18/25 03/24/25 Hi story capsule ( DHA) Last Menstrual Period: 12/27/24 Zika: Zika virus screening: Negative : No PFSH PFSH Surgical History [place] teeth extracted Family History Brother Asthma Social History adopted: No household members: spouse number of children: 0 current occupational status: employed 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/hazards: No pets and animals: Yes pets and animals: dog(s) history of recent travel: Yes ([facility] - January 2025) out of state: Yes out of country: No sexually active: Yes Smoking Status: Never smoker second hand exposure: No alcohol intake: current alcohol intake frequency: holidays/special occasions only details: Not while substance use type: does not use well-balanced diet: about half the time caffeine: Yes Type: coffee eating out: 1-3 times/week during the past year weight has: remained stable what type of physical activity do you participate in: walking frequency: 3-4 times per week duration: 15-30 minutes/day mellissa/synagogue: Yarsani seatbelt use: always do you feel safe at home: Yes additional social history: : Ry Coronadoer History 1 Elective abortions 0 Hx Para 0 Spontaneous abortions 0 Hx # Term Pregnancies Ectopic pregnancies Hx # Pregnancies Multiple births # of living children 0 HPI 12wk OB Details: DOUG STILES is a 24 year old who presents for routine OB visit. OB Visit SAR[facility]NAN Calculator Estimated Delivery Date Method Current WG Current Estimate 10/03/25 LMP (Certain) 12w 3d Expected Delivery Route/Plan Labor Preferences- CB/BF classes: [] labor support person: [] labor intervention preferences: [] pain management options preferred: [] cut cord/dad catch: [] : [] PP control planned: [] discussed possible routes of delivery and associated risks: [] special requests: [] Specific Issue/Plans Covid status: [] Flu vaccine: [] Tdap vaccine: [] Rhogam: [] LARC form signed: [] Problem list reviewed and updated with the most current plan of care details and appropriate orders placed. Relevant counseling for the gestational age provided. Continue routine care and follow up unless otherwise noted in visit notes/problem list details Initial Weight: 173 lb Date -?-?-?-?-?-?-?-?-?-?-?-?- EGA Weight BP Urine Prot -?-?-?-?-?-?-?-?-?-?-?-?- Glucose FHR FuHt Pres Dilation -?-?-?-?-?-?-?-?-?-?-?-?- Effaced St Visit Note 02/22/25 -?-?-?-?-?-?-?-?-?-?-?-?- 8w 1d 173 lb 2 oz (+2 oz) 132/84 -?-?-?-?-?-?-?-?-?-?-?-?- 165 -?-?-?-?-?-?-?-?-?-?-?-?- JV- CRL consiste nt with LMP. declines NIPT. 03/24/25 -?-?-?-?-?-?-?-?-?-?-?-?- 12w 3d 179 lb 5 oz (+6 lb 5 oz) 130/87 -?-?--?-?-?-?-?-?-?-?-?-?- 155 -?-?-?-?-?-?-?-?-?-?-?-?- SM- no vb crampi ng ACOG First Trimester First Trimester: Desire for , Alcohol, Tobacco Cessation, Illicit/Recreational Drug/Substance Use, Intimate Partner Violence, Barriers to care, Unstable Housing, Communication Barriers, Environmental/Work Hazards, Anticipated Course of Care, Toxoplasmosis Precations, Use of Any medications, Sexual activity, Exercise, Dental Care, Sauna/Hot tub use, Seat Belt use, Childbirth classes/Hospital facilities, Travel, Indications for Ultrasound and Screening for Aneuploidy; Discussed Coding Level of Care Code OB Routine Diagnoses Supervision of normal Z34.90 12 weeks gestation of Z3A.12 Weeks of gestation: 12 weeks Assessment and Plan Assessment and Plan (1) Supervision of normal : Status: Acute Comment: PRR, , SARAVANAN 10/03/25, : Ry (2) : Status: Acute Qualifiers: Weeks of gestation: 12 weeks Qualified Code(s): Z3A.12 - 12 weeks gestation of Comment: Discussed genetic/carrier testing - undecided 03/24/25 1621 <Electronically signed by Sunni stephen MD> Date _ Sunni Moise MD Cosigner Signature: Date (if applicable) CC: ~ [facility] [employer] Work Phone: 1(613) 120-176107-29-2025 [facility] [address], [address] [place] [id number] OFFICE VISIT Date of Service: 02/22/25 MR#: [id number] Acct: [id number] Name: DOUG STILES Rep #: [id number] : 2000 Provider: Dr. Kailee Cruz DO Age/Sex: 24/F Location: [facility] – [place] Status: Signed Intake Vital Signs 02/09/25 09:04 02/09/25 10:14 02/18/25 09:07 02/22/25 14:30 02/22/25 14:32 Height 5 ft 8 in 5 ft 8 in 5 ft 8 in 5 ft 8 in 5 ft 8 in Weight: 173 lb 2 oz BMI 26.3 BP 132/84 H Intake Visit Reasons: *EST* NOB LMP 12/27, SARAVANAN 10/03 Web Publisher Required: No Is patient in pain?: No Allergies No Known Allergies Allergy (Verified 02/22/25 14:30) Medications ?Medication ?Instructions ?Recorded ?Confirmed ?Type docosahexaenoic acid 200 mg mg PO 02/18/25 02/22/25 Hi story capsule ( DHA) Last Menstrual Period: 12/27/24 Zika: Zika virus screening: Negative : No PFSH PFSH Surgical History [place] teeth extracted Family History Brother Asthma Social History adopted: No household members: spouse number of children: 0 current occupational status: employed 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/hazards: No pets and animals: Yes pets and animals: dog(s) history of recent travel: Yes ([facility] - January 2025) out of state: Yes out of country: No sexually active: Yes Smoking Status: Never smoker second hand exposure: No alcohol intake: current alcohol intake frequency: holidays/special occasions only details: Not while substance use type: does not use well-balanced diet: about half the time caffeine: Yes Type: coffee eating out: 1-3 times/week during the past year weight has: remained stable what type of physical activity do you participate in: walking frequency: 3-4 times per week duration: 15-30 minutes/day mellissa/synagogue: Yarsani seatbelt use: always do you feel safe at home: Yes additional social history: : Ry Pierce History 1 Elective abortions 0 Hx Para 0 Spontaneous abortions 0 Hx # Term Pregnancies Ectopic pregnancies Hx # Pregnancies Multiple births # of living children 0 HPI *EST* NOB LMP 12/27, SARAVANAN 10/03 Details: DOUG STILES is a 24 year old who presents for New OB visit. OB Visit SARAVANAN Calculator Estimated Delivery Date Method Current WG Current Estimate 10/03/25 LMP (Certain) 8w 1d Estimated Due Date: 10/03/25 Expected Delivery Route/Plan Labor Preferences- CB/BF classes: [] labor support person: [] labor intervention preferences: [] pain management options preferred: [] cut cord/dad catch: [] : [] PP control planned: [] discussed possible routes of delivery and associated risks: [] special requests: [] Specific Issue/Plans Covid status: [] Flu vaccine: [] Tdap vaccine: [] Rhogam: [] LARC form signed: [] Problem list reviewed and updated with the most current plan of care details and appropriate ordersplaced. Relevant counseling for the gestational age provided. Continue routine care and follow up unless otherwise noted in visit notes/problem list details Initial Weight: 173 lb Date -?-?-?-?--?-?-?-?-?-?-?-?- EGA Weight BP Urine Prot -?-?-?-?-?-?-?-?-?-?-?-?- Glucose FHR FuHt Pres Dilation -?-?-?-?-?-?-?-?-?-?-?-?- Effaced St Visit Note 02/22/25 -?-?-?-?-?-?-?-?-?-?-?-?- 8w 1d 173 lb 2 oz (+2 oz) 132/84 -?-?-?-?-?-?-?-?-?-?-?-?- 165 -?-?-?-?-?-?-?-?-?-?-?-?- JV- CRL consiste nt with LMP. declines NIPT. Menstrual History Last Menstrual Period: 12/27/24 Reported LMP: definite Normal amount/duration: Yes Frequency in days: 31 On hormonal BC at conception: No hCG+: 01/28/25 Antepartum Record Genetic Screening: Congenital Heart Defect: Other, Neural Tube Defect: Other, Hemoglobinopathy Or Carrier: Other, Cystic Fibrosis: Other, Chromosome Abnormality: Other, Ronak-Sachs: Other, Hemophilia: Other, Intellectual Disability/Autism: Other, Recurrent Loss/Stillbirth: Other, Other Structural Defect: Other, Other Genetic Disease: Other and Maternal Metabolic Disorder: Other Infection History: Live with someone with TB or Exposed to TB: No, Patient or Partner has history of Genital Herpes: No, Rash or Viral illness since last mentrual period: No, Prior GBS-Infected child: No, History of STD: No, HIV Infection: No, History of Hepatitis: No, Recent travel outside of [place]: No, Concern for hepatitis exposure: No, Varicella immune: Yes (Had vaccine) and Covid Vaccinated: No Medical History Medical History: Positive: Operations/hospitalizations (wisdom teeth) and Uterine anomaly/sulma (Retroverted Uterus ) and Negative: Diabetes, Hypertension, Heart disease, Auto-immune disorder, Kidney disease/UTI, Neurologic/epilepsy, Psychiatric, Depression/ depression, Hepatitis/liver disease, Varicosities/phlebitis, Thyroid dysfunction, Trauma/domestic violence, History of blood transfusions, D (Rh) Sensitized, Pulmonary (e.g.,TB,Asthma), Seasonal allergies, Drug/latex allergies/reactions, Breast, Value Advisor surgery, Anesthetic complications, History of abnormal pap, Infertility, Anti-retroviral treatment, Relevant family history and Other ACOG First Trimester First Trimester: Desire for , Alcohol, Tobacco Cessation, Illicit/Recreational Drug/Substance Use, Intimate Partner Violence, Barriers to care, Unstable Housing, Communication Barriers, Environmental/Work Hazards, Anticipated Course of Care, Toxoplasmosis Precations, Use of Any med ications, Sexual activity, Exercise, Dental Care, Sauna/Hot tub use, Seat Belt use, Childbirth classes/Hospital facilities, Travel, Indications for Ultrasound and Screening for Aneuploidy; Discussed ROS Const Reports system reviewed and no additional complaints, except as documented, Reports fatigue and Denies fever(s) Eyes Reports system reviewed and no additional complaints, except as documented ENT Reports system reviewed and no additional complaints, except as documented Card Denies chest pain and Denies dyspnea Resp Reports system reviewed and no additional complaints, except as documented, Denies cough and Deniesdyspnea GI Denies abdominal pain and Reports nausea Reports system reviewed and no additional complaints, except as documented Musc Reports system reviewed and no additional complaints, except as documented Skin/Breast Reports system reviewed and no additional complaints, except as documented Neuro Yes system reviewed and no additional complaints, except as documented Psych Reports system reviewed and no additional complaints, except as documented Endo Reports system reviewed and no additional complaints, except as documented and Reports fatigue Exam Const General: healthy appearing, comfortable and no acute distress Orientation: alert [facility] Head: normal to inspection, normocephalic and atraumatic Ears: hearing grossly normal bilaterally and external ears normal Nose: external nose normal and nares normal Mouth: oral mucosae normal Teeth and gingiva: dentition normal Eyes General: appearance normal, both eyes and all related structures Neck Neck: normal visual inspection, no lymphadenopathy and supple Thyroid: thyroid normal Resp Effort & Inspection: normal respiratory effort GI Inspection: normal to inspection Palpation: soft and no hepatosplenomegaly General: bladder normal to palpation External Female Exam: normal external appearance and normal appearance of the urethra Urethra: normal appearance of the urethra Speculum Exam - Vagina: normal appearance of the vagina and normal vaginal discharge Speculum Exam - Cervix: normal appearance of the cervix Bimanual Exam- Vagina & Uterus: normal bimanual exam, bladder normal to palpation, non-tender and other Bimanual Exam- Adnexa, other: non-tender Skin General: no rashes or lesions noted Neuro Motor: muscle tone normal throughout and no movement abnormalities noted Extrem General: normal to inspection and full ROM Supplemental Info ACOG book given and patient encouraged to read about nutrition, exercise, weight gain, and food avoidance in . Coding Level of Care Code OB Routine Diagnoses Supervision of normal Z34.90 Z34.90 Assessment and Plan Assessment and Plan (1) Supervision of normal : Status: Acute Comment: , SARAVANAN 10/03/25, : Ry (2) : Status: Acute Comment: Discussed genetic/carrier testing - undecided Plan Patient oriented to practice and discussed care expectations and screenings. ACOG book offered to patient. Discussed routine and specially indicated labs if needed- patient consents to testing. See problem list details for plan information. Optional screening including maternal carrier screenings, neural tube defect screening, genetic screening options including quad screen, nuchal translucency, sequential screening, and NIPT screening offered to patient and patient chose: nonw 02/22/25 1521 e Yarelis DO> Date _ Melony Cruz DO Cosigner Signature: Date (if applicable) CC: ~ [facility]07-29-2025 Progress note Author Melony Santoyo [facility] Note Date/Time February 22, 2025 3:21 pm [facility] [address], [address] [place] [address] OFFICE VISIT Date of Service: 02/22/25 MR#: [id number] Acct: [id number] Name: DOUG STILES Rep #: [id number] : 2000 Provider: Dr. Kailee Cruz DO Age/Sex: 24/F Location: [facility] – [place] Status: Signed Intake Vital Signs 02/09/25 09:04 02/09/25 10:14 02/18/25 09:07 02/22/25 14:30 02/22/25 14:32 Height 5 ft 8 in 5 ft 8 in 5 ft 8 in 5 ft 8 in 5 ft 8 in Weight: 173 lb 2 oz BMI 26.3 BP 132/84 H Intake Visit Reasons: *EST* NOB LMP 6, SARAVANAN 10/03 Web Publisher Required: No Is patient in pain?: No Allergies No Known Allergies Allergy (Verified 02/22/25 14:30) Medications ?Medication ?Instructions ?Recorded ?Confirmed ?Type docosahexaenoic acid 200 mg mg PO 02/18/25 02/22/25 Hi story capsule ( DHA) Last Menstrual Period: 12/27/24 Zika: Zika virus screening: Negative : No PFSH PFSH Surgical History [place] teeth extracted Family History Brother Asthma Social History adopted: No household members: spouse number of children: 0 current occupational status: employed 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/hazards: No pets and animals: Yes pets and animals: dog(s) history of recent travel: Yes ([facility] - January 2025) out of state: Yes out of country: No sexually active: Yes Smoking Status: Never smoker second hand exposure: No alcohol intake: current alcohol intake frequency: holidays/special occasions only details: Not while substance use type: does not use well-balanced diet: about half the time caffeine: Yes Type: coffee eating out: 1-3 times/week during the past year weight has: remained stable what type of physical activity do you participate in: walking frequency: 3-4 times per week duration: 15-30 minutes/day mellissa/synagogue: [employer] seatbelt use: always do you feel safe at home: Yes additional social history: : Ry Pierce History 1 Elective abortions 0 Hx Para 0 Spontaneous abortions 0 Hx # Term Pregnancies Ectopic pregnancies Hx # Pregnancies Multiple births # of living children 0 HPI *EST* NOB LMP 12/27, SARAVANAN 10/03 Details: DOUG STILES is a 24 year old who presents for New OB visit. OB Visit SARAVANAN Calculator Estimated Delivery Date Method Current WG Current Estimate 10/03/25 LMP (Certain) 8w 1d Estimated Due Date: 10/03/25 Expected Delivery Route/Plan Labor Preferences- CB/BF classes: [] labor support person: [] labor intervention preferences: [] pain management options preferred: [] cut cord/dad catch: [] : [] PP control planned: [] discussed possible routes of delivery and associated risks: [] special requests: [] Specific Issue/Plans Covid status: [] Flu vaccine: [] Tdap vaccine: [] Rhogam: [] LARC form signed: [] Problem list reviewed and updated with the most current plan of care details and appropriate orders placed. Relevant counseling for the gestational age provided. Continue routine care and follow up unless otherwise noted in visit notes/problem list details Initial Weight: 173 lb Date -?-?-?-?--?-?-?-?-?-?-?-?- EGA Weight BP Urine Prot -?-?-?-?-?-?-?-?-?-?-?-?- Glucose FHR FuHt Pres Dilation -?-?-?-?-?-?-?-?-?-?-?-?- Effaced St Visit Note 02/22/25 -?-?-?-?-?-?-?-?-?-?-?-?- 8w 1d 173 lb 2 oz (+2 oz) 132/84 -?-?-?-?-?-?-?-?-?-?-?-?- 165 -?-?-?-?-?-?-?-?-?-?-?-?- JV- CRL consiste nt with LMP. declines NIPT. Menstrual History Last Menstrual Period: 12/27/24 Reported LMP: definite Normal amount/duration: Yes Frequency in days: 31 On hormonal BC at conception: No hCG+: 01/28/25 Antepartum Record Genetic Screening: Congenital Heart Defect: Other, Neural Tube Defect: Other, Hemoglobinopathy Or Carrier: Other, Cystic Fibrosis: Other, Chromosome Abnormality: Other, Ronak-Sachs: Other, Hemophilia: Other, Intellectual Disability/Autism: Other, Recurrent Loss/Stillbirth: Other, Other Structural Defect: Other, Other Genetic Disease: Other and Maternal Metabolic Disorder: Other Infection History: Live with someone with TB or Exposed to TB: No, Patient or Partner has history of Genital Herpes: No, Rash or Viral illness since last mentrual period: No, Prior GBS-Infected child: No, History of STD: No, HIV Infection: No, History of Hepatitis: No, Recent travel outside of [place]: No, Concern for hepatitis exposure: No, Varicella immune: Yes (Had vaccine) and Covid Vaccinated: No Medical History Medical History: Positive: Operations/hospitalizations (wisdom teeth) and Uterine anomaly/sulma (Retroverted Uterus ) and Negative: Diabetes, Hypertension, Heart disease, Auto-immune disorder, Kidney disease/UTI, Neurologic/epilepsy, Psychiatric, Depression/ depression, Hepatitis/liver disease, Varicosities/phlebitis, Thyroid dysfunction, Trauma/domestic violence, History of blood transfusions, D (Rh) Sensitized, Pulmonary (e.g.,TB,Asthma), Seasonal allergies, Drug/latex allergies/reactions, Breast, Value Advisor surgery, Anesthetic complications, History of abnormal pap, Infertility, Anti-retroviral treatment, Relevant family history and Other ACOG First Trimester First Trimester: Desire for , Alcohol, Tobacco Cessation, Illicit/Recreational Drug/Substance Use, Intimate Partner Violence, Barriers to care, Unstable Housing, Communication Barriers, Environmental/Work Hazards, Anticipated Course of Care, Toxoplasmosis Precations, Use of Any medications, Sexual activity, Exercise, Dental Care, Sauna/Hot tub use, Seat Belt use, Childbirth classes/Hospital facilities, Travel, Indications for Ultrasound and Screening for Aneuploidy; Discussed ROS Const Reports system reviewed and no additional complaints, except as documented, Reports fatigue and Denies fever(s) Eyes Reports system reviewed and no additional complaints, except as documented ENT Reports system reviewed and no additional complaints, except as documented Card Denies chest pain and Denies dyspnea Resp Reports system reviewed and no additional complaints, except as documented, Denies cough and Denies dyspnea GI Denies abdominal pain and Reports nausea Reports system reviewed and no additional complaints, except as documented Musc Reports system reviewed and no additional complaints, except as documented Skin/Breast Reports system reviewed and no additional complaints, except as documented Neuro Yes system reviewed and no additional complaints, except as documented Psych Reports system reviewed and no additional complaints, except as documented Endo Reports system reviewed and no additional complaints, except as documented and Reports fatigue Exam Const General: healthy appearing, comfortable and no acute distress Orientation: alert [facility] Head: normal to inspection, normocephalic and atraumatic Ears: hearing grossly normal bilaterally and external ears normal Nose: external nose normal and nares normal Mouth: oral mucosae normal Teeth and gingiva: dentition normal Eyes General: appearance normal, both eyes and all related structures Neck Neck: normal visual inspection, no lymphadenopathy and supple Thyroid: thyroid normal Resp Effort & Inspection: normal respiratory effort GI Inspection: normal to inspection Palpation: soft and no hepatosplenomegaly General: bladder normal to palpation External Female Exam: normal external appearance and normal appearance of the urethra Urethra: normal appearance of the urethra Speculum Exam - Vagina: normal appearance of the vagina and normal vaginal discharge Speculum Exam - Cervix: normal appearance of the cervix Bimanual Exam- Vagina & Uterus: normal bimanual exam, bladder normal to palpation, non-tender and other Bimanual Exam- Adnexa, other: non-tender Skin General: no rashes or lesions noted Neuro Motor: muscle tone normal throughout and no movement abnormalities noted Extrem General: normal to inspection and full ROM Supplemental Info [facility] book given and patient encouraged to read about nutrition, exercise, weight gain, and food avoidance in . Coding Level of Care Code OB Routine Diagnoses Supervision of normal Z34.90 Z34.90 Assessment and Plan Assessment and Plan (1) Supervision of normal : Status: Acute Comment: , SARAVANAN 10/03/25, : Ry (2) : Status: Acute Comment: Discussed genetic/carrier testing - undecided Plan Patient oriented to practice and discussed care expectations and screenings. ACOG book offered to patient. Discussed routine and specially indicated labs if needed- patient consents to testing. See problem list details for plan information. Optional screening including maternal carrier screenings, neural tube defect screening, genetic screening options including quad screen, nuchal translucency, sequential screening, and NIPT screening offered to patient and patient chose: nonw 02/22/25 1521 <Electronically signed by Melony Bernabe DO> Date _ Melony Cruz DO Cosigner Signature: Date (if applicable) CC: ~ [facility] Work Phone: 1(799) 618-252307-16-2025 Chief complaint+Reason for visit Narrative * Chief Complaint Admit Date Annual (CONSTRUCTION ADMINISTRATOR) February 09, 2025 8:54 am PNOB, Vitals, Education February 18, 2025 8:02am Reason for Visit Admit Date February 09, 2025 8:54 am Encounter for routine gynecological exam ination February 09, 2025 8:54am [facility] Work Phone: 1(907) 300-518507-16-2025 Chief complaint+Reason for visit Narrative * Chief Complaint Admit Date Annual (CONSTRUCTION ADMINISTRATOR) February 09, 2025 8:54 am PNOB, Vitals, Education February 18, 2025 8:02am *EST* NOB LMP 6/2, SARAVANAN 10/03February 22 2:19pm Reason for Visit Admit Date February 09, 2025 8:54 am Encounter for routine gynecological exam ination February 09, 2025 8:54am February 22, 2025 2:19 pm Supervision of normal January 2:19pm [facility] Work Phone: 1(493) 222-744207-16-2025 Chief complaint+Reason for visit Narrative * Chief Complaint Admit Date Annual (CONSTRUCTION ADMINISTRATOR) February 09, 2025 8:54 am PNOB, Vitals, Education February 18, 2025 8:02am *EST* NOB LMP 6/2, SARAVANAN 10/03February 22 2:19pm Reason for Visit Admit Date February 09, 2025 8:54 am Encounter for routine gynecological exam ination February 09, 2025 8:54am February 18, 2025 8:02 am Supervision of normal January 8:02am February 22, 2025 2:19 pm Supervision of normal January 2:19pm [facility] Work Phone: 1([phone]) 225-608107-16-2025 Chief complaint+Reason for visit Narrative * Chief Complaint Admit Date Annual (CONSTRUCTION ADMINISTRATOR) February 09, 2025 8:54 am PNOB, Vitals, Education February 18, 2025 8:02am *EST* NOB LMP 6/2, SARAVANAN 10/03February 22 2:19pm 12wk OB March 24, 2025 3: 41pm Reason for Visit Admit Date February 09, 2025 8:54 am Encounter for routine gynecological exam ination February 09, 2025 8:54am February 18, 2025 8:02 am Supervision of normal January 8:02am February 22, 2025 2:19 pm Supervision of normal January 2:19pm March 24, 2025 3: 41pm Supervision of normal February 262024 3:41pm [facility] Work Phone: 1([phone]) 578-535907-16-2025 Chief complaint+Reason for visit Narrative * Chief Complaint Admit Date Annual (CONSTRUCTION ADMINISTRATOR) February 09, 2025 8:54 am PNOB, Vitals, Education February 18, 2025 8:02am *EST* NOB LMP 6/2, SARAVANAN 3/February 22 2:19pm 12wk OB March 24, 2025 3: 41pm 16wk OB April 20, 2025 3:21pm Reason for Visit Admit Date February 09, 2025 8:54 am Encounter for routine gynecological exam ination February 09, 2025 8:54am February 18, 2025 8:02 am Supervision of normal January 8:02am February 22, 2025 2:19 pm Supervision of normal January 2:19pm March 24, 2025 3: 41pm Supervision of normal February 262024 3:41pm April 20, 2025 3:21pm Supervision of normal Septembe r 2024 3:21pm [facility] Work Phone: 1([phone]) 848-335507-16-2025 Evaluation note* Diagnosis Onset Date Resolution Status Admit Date acute February 09 8:54am Encounter for routine gynecological examination noneactive January 252024 8:54am [facility] [employer] Work Phone: 1([phone]) 141-621807-16-2025 Evaluation note* Diagnosis Onset Date Resolution Status Admit Date acute February 09 8:54am Encounter for routine gynecological examination noneactive January 252024 8:54am acute February 22 2:19pm Supervision of normal acute February 22, 2025 2:19pm [facility] [employer] Work Phone: 1([phone]) 599-407607-16-2025 Evaluation note* Diagnosis Onset Date Resolution Status Admit Date acute February 09 8:54am Encounter for routine gynecological examination noneactive January 252024 8:54am acute February 18 8:02am Supervision of normal acute February 18, 2025 8:02am acute February 22 2:19pm Supervision of normal acute February 22, 2025 2:19pm [facility] Work Phone: 1([phone]) 649-958907-16-2025 Evaluation note* Diagnosis Onset Date Resolution Status Admit Date acute February 09 8:54am Encounter for routine gynecological examination noneactive January 252024 8:54am acute February 18 8:02am Supervision of normal acute February 18, 2025 8:02am acute February 22 2:19pm Supervision of normal acute February 22, 2025 2:19pm acute March 24, 2 025 3:41pm Supervision of normal acute March 24 3:41pm [facility] [employer] Work Phone: 1([phone]) 279-334307-16-2025 Evaluation note* Diagnosis Onset Date Resolution Status Admit Date acute February 09 8:54am Encounter for routine gynecological examination noneactive January 252024 8:54am acute February 18 8:02am Supervision of normal acute February 18, 2025 8:02am acute February 22 2:19pm Supervision of normal acute February 22, 2025 2:19pm acute March 24, 2 025 3:41pm Supervision of normal acute March 24 3:41pm acute March 3:21pm Supervision of normal acute April 20, 2025 3:21pm [facility] [employer] Work Phone: 1([phone]) 629-523007-12-2024 NoteHNO ID: [id number] Author: KYE JORGENSEN APRN.SHIPPING ROOM SUPERVISOR Service: ? Author Type: Nurse Practitioner Type: Progress Notes Filed: 02/06/2024 12:02 Note Text: This note was created using NoteWriter. Subjective Doug Stiles is a 23 year old female. 23 year old female with no significant PMH presents for rash. Acute onset Friday Raised and red rash +itchy Denies fever or chills Denies URI sx Denies SOB or dyspnea Denies drainage Denies malaise or fatigue Denies new medicines, foods, soaps or lotions. States that she was fishing Friday night The history is provided by the patient. No speech and language specialist was used. Rash This is a new problem. The current episode started in the past 7 days. The problem is unchanged. Location: arms, neck and hands. The rash is characterized by redness and itchiness. She was exposed to plant contact. Pertinent negatives include no anorexia, congestion, cough, diarrhea, eye pain, facial edema, fatigue, fever, joint pain, nail changes, rhinorrhea, shortness of breath, sore throat or vomiting. Past treatments include nothing. The treatment provided no relief. There is no history of allergies, asthma, eczema or varicella. No past medical history on file. No past surgical history on file. ALLERGIES Patient has no known allergies. MEDICATIONS predniSONE (DELTASONE) 10 mg tablet Take 4 tabs daily for 3 days, then 2 tabs daily for 3 days, then 1 tab daily for 3 days with food. famotidine (PEPCID) 20 mg tablet Take 1 tablet by mouth at bedtime as needed. ibuprofen (MOTRIN ORAL) Take by mouth. No family history on file. Social History Tobacco Use Smoking status: Never Smokeless tobacco: Never Substance Use Topics Alcohol use: Never Drug use: Never Review of Systems Constitutional: Negative for activity change, appetite change, fatigue and fever. HENT: Negative for congestion, rhinorrhea and sore throat. Eyes: Negative for pain. Respiratory: Negative for apnea, cough, chest tightness and shortness of breath. Cardiovascular: Negative for chest pain, palpitations and leg swelling. Gastrointestinal: Negative for abdominal pain, anorexia, diarrhea and vomiting. Musculoskeletal: Negative for joint pain. Skin: Positive for rash. Negative for nail changes. Allergic/Immunologic: Negative for environmental allergies, food allergies and immunocompromised state. Neurological: Negative for dizziness, facial asymmetry, light-headedness and headaches. Hematological: Negative for adenopathy. Does not bruise/bleed easily. Psychiatric/Behavioral: Negative for agitation and behavioral problems. Objective BP 142/72 Pulse 72 Temp 36.9 ?C (98.5 ?F) Resp 16 Wt 73 kg (160 lb 15 oz) LMP 08/15/2022 SpO2 97% Physical Exam Vitals and nursing note reviewed. Constitutional: General: She is not in acute distress. Appearance: Normal appearance. She is normal weight. She is not ill-appearing, toxic-appearing or diaphoretic. HENT: Head: Normocephalic and atraumatic. Right Ear: Ear canal and external ear normal. Left Ear: Ear canal and external ear normal. Nose: Nose normal. No congestion or rhinorrhea. Mouth/Throat: Mouth: Mucous membranes are moist. Pharynx: No oropharyngeal exudate or posterior oropharyngeal erythema. Eyes: General: Right eye: No discharge. Left eye: No discharge. Extraocular Movements: Extraocular movements intact. Conjunctiva/sclera: Conjunctivae normal. Pupils: Pupils are equal, round, and reactive to light. Cardiovascular: Rate and Rhythm: Normal rate and regular rhythm. Pulses: Normal pulses. Heart sounds: Normal heart sounds. No murmur heard. No friction rub. Pulmonary: Effort: Pulmonary effort is normal. No respiratory distress. Breath sounds: Normal breath sounds. No stridor. No wheezing, rhonchi or rales. Chest: Chest wall: No tenderness. Abdominal: General: Abdomen is flat. There is no distension. Palpations: Abdomen is soft. There is no mass. Tenderness: There is no abdominal tenderness. There is no right CVA tenderness, left CVA tenderness, guarding or rebound. Hernia: No hernia is present. Musculoskeletal: General: No swelling, tenderness, deformity or signs of injury. Normal range of motion. Cervical back: Normal range of motion and neck supple. No rigidity. Right lower leg: No edema. Left lower leg: No edema. Lymphadenopathy: Cervical: No cervical adenopathy. Skin: General: Skin is warm and dry. Capillary Refill: Capillary refill takes less than 2 seconds. Coloration: Skin is not jaundiced or pale. Findings: Rash present. No bruising, erythema or lesion. Comments: B/L forearms, nape of neck and anterior chest with pruritic raised macupapular to streak like base. No petechia No abscess. No streaking. +neuro +sensation Neurological: General: No focal deficit present. Mental Status: She is alert and oriented to person, place, and time. Cran (more content not included)...[facility]07-12-2024 History of Present illness Narrative* Kye Jorgensen APRN.SHIPPING ROOM SUPERVISOR - 02/06/2024 11:08 AM EDT This note was created using MyQuoteApp. Subjective Doug Stiles is a 23 year old female. 23 year old female with no significant PMH presents for rash. Acute onset Friday Raised and red rash +itchy Denies fever or chills Denies URI sx Denies SOB or dyspnea Denies drainage Denies malaise or fatigue Denies new medicines, foods, soaps or lotions. States that she was fishing Friday night The history is provided by the patient. No speech and language specialist was used. Rash This is a new problem. The current episode started in the past 7 days. The problem is unchanged. Location: arms, neck and hands. The rash is characterized by redness and itchiness. She was exposed toplant contact. Pertinent negatives include no anorexia, congestion, cough, diarrhea, eye pain, facial edema, fatigue, fever, joint pain, nail changes, rhinorrhea, shortness of breath, sore throat or vomiting. Past treatments include nothing. The treatment provided no relief. There is no history of allergies, asthma, eczema or varicella. No past medical history on file. No past surgical history on file. ALLERGIES Patient has no known allergies. MEDICATIONS predniSONE (DELTASONE) 10 mg tablet Take 4 tabs daily for 3 days, then 2 tabs daily for 3 days, then 1 tab daily for 3 days with food. famotidine (PEPCID) 20 mg tablet Take 1 tablet by mouth at bedtime as needed. ibuprofen (MOTRIN ORAL) Take by mouth. No family history on file. Social History Tobacco Use Smoking status: Never Smokeless tobacco: Never Substance Use Topics Alcohol use: Never Drug use: Never Review of Systems Constitutional: Negative for activity change, appetite change, fatigue and fever. HENT: Negative for congestion, rhinorrhea and sore throat. Eyes: Negative for pain. Respiratory: Negative for apnea, cough, chest tightness and shortness of breath. Cardiovascular: Negative for chest pain, palpitations and leg swelling. Gastrointestinal: Negative for abdominal pain, anorexia, diarrhea and vomiting. Musculoskeletal: Negative for joint pain. Skin: Positive for rash. Negative for nail changes. Allergic/Immunologic: Negative for environmental allergies, food allergies and immunocompromised state. Neurological: Negative for dizziness, facial asymmetry, light-headedness and headaches. Hematological: Negative for adenopathy. Does not bruise/bleed easily. Psychiatric/Behavioral: Negative for agitation and behavioral problems. Objective BP 142/72 Pulse 72 Temp 36.9 C (98.5 F) Resp 16 Wt 73 kg (160 lb 15 oz) LMP 08/15/2022 SpO2 97% Physical Exam Vitals and nursing note reviewed. Constitutional: General: She is not in acute distress. Appearance: Normal appearance. She is normal weight. She is not ill-appearing, toxic-appearing or diaphoretic. HENT: Head: Normocephalic and atraumatic. Right Ear: Ear canal and external ear normal. Left Ear: Ear canal and external ear normal. Nose: Nose normal. No congestion or rhinorrhea. Mouth/Throat: Mouth: Mucous membranes are moist. Pharynx: No oropharyngeal exudate or posterior oropharyngeal erythema. Eyes: General: Right eye: No discharge. Left eye: No discharge. Extraocular Movements: Extraocular movements intact. Conjunctiva/sclera: Conjunctivae normal. Pupils: Pupils are equal, round, and reactive to light. Cardiovascular: Rate and Rhythm: Normal rate and regular rhythm. Pulses: Normal pulses. Heart sounds: Normal heart sounds. No murmur heard. No friction rub. Pulmonary: Effort: Pulmonary effort is normal. No respiratory distress. Breath sounds: Normal breath sounds. No stridor. No wheezing, rhonchi or rales. Chest: Chest wall: No tenderness. Abdominal: General: Abdomen is flat. There is no distension. Palpations: Abdomen is soft. There is no mass. Tenderness: There is no abdominal tenderness. There is no right CVA tenderness, left CVA tenderness, guarding or rebound. Hernia: No hernia is present. Musculoskeletal: General: No swelling, tenderness, deformity or signs of injury. Normal range of motion. Cervical back: Normal range of motion and neck supple. No rigidity. Right lower leg: No edema. Left lower leg: No edema. Lymphadenopathy: Cervical: No cervical adenopathy. Skin: General: Skin is warm and dry. Capillary Refill: Capillary refill takes less than 2 seconds. Coloration: Skin is not jaundiced or pale. Findings: Rash present. No bruising, erythema or lesion. Comments: B/L forearms, nape of neck and anterior chest with pruritic raised macupapular to streak like base. No petechia No abscess. No streaking. +neuro +sensation Neurological: General: No focal deficit present. Mental Status: She is alert and oriented to person, place, and time. Cranial Nerves: No cranial nerve deficit. Sensory: No sensory deficit. Motor: No weakness. Coordination: Coordination normal. Gait: Gait normal. Psychiatric: Mood and Affect: Mood normal. Behavior: Behavior normal. Thought Content: Thought content normal. Judgment: Judgment normal. Assessment and Plan ASSESSMENT/PLAN: 1. Dermatitis due to plants, including poison eugenio, sumac, and oak - ICD9: 692.6, ICD10: L25.5 X 4 days +contact with plant - Oral Steriod tx -Prednisone taper RX Pepcid - Anti itch therapy of OTC 1% Hydrocortisone cream, Calomine lotion, and Oral Benydryl recommended prn - discussed skin care of rash - follow up if symptoms persist or worsen. Kye Jorgensen APRN.SHIPPING ROOM SUPERVISOR documented [facility] NoteHNO ID: [id number] Author: JUAN JERNIGAN PA Service: ? Author Type: Physician Dental Service Technician Type: Progress Notes Filed: 11/08/2023 10:25 Note Text: This note was created using NoteWriter. Subjective Doug Stiles is a 22 year old female. HPI 22-year-old female presents for sore throat. Patient states sore throat started yesterday. She did have strep 3 weeks ago and finish all of her medication. She states that she felt better after finishing the medication and symptoms were completely resolved. She states yesterday she started getting sore throat again. 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 She thinks she may have gotten strep again. She did change her toothbrush out and Sticks out after being on the amoxicillin for 24 hours last time. No vomiting. Still able to eat and drink. She states she had a temp of 99.5 ?F this morning. Has not taken any Tylenol or Motrin. No past medical history on file. No past surgical history on file. ALLERGIES Patient has no known allergies. MEDICATIONS ibuprofen (MOTRIN ORAL) Take by mouth. amoxicillin (AMOXIL) 400 mg/5 mL suspension Take 6.3 mL by mouth two times a day for 10 days. No family history on file. Social History Tobacco Use Smoking status: Never Smokeless tobacco: Never Substance Use Topics Alcohol use: Never Drug use: Never Review of Systems Constitutional: Negative for chills and fever. HENT: Positive for sore throat. Negative for congestion and ear pain. Respiratory: Negative for cough and shortness of breath. Cardiovascular: Negative for chest pain. Gastrointestinal: Negative for diarrhea and vomiting. Objective BP 128/70 Pulse 114 Temp 36.3 ?C (97.3 ?F) Resp 18 Wt 75.4 kg (166 lb 3.6 oz) LMP 08/15/2022 SpO2 97% Physical Exam Vitals and nursing note reviewed. Constitutional: General: She is not in acute distress. Appearance: Normal appearance. She is not toxic-appearing. HENT: Right Ear: Tympanic membrane and ear canal normal. Left Ear: Tympanic membrane and ear canal normal. Nose: Nose normal. Mouth/Throat: Mouth: Mucous membranes are moist. Pharynx: Uvula midline. Posterior oropharyngeal erythema present. No oropharyngeal exudate. Tonsils: Tonsillar exudate present. No tonsillar abscesses. 1+ on the right. 1+ on the left. Eyes: Conjunctiva/sclera: Conjunctivae normal. Cardiovascular: Rate and Rhythm: Normal rate and regular rhythm. Pulmonary: Effort: Pulmonary effort is normal. Breath sounds: Normal breath sounds. Neurological: Mental Status: She is alert. Assessment and Plan ASSESSMENT/PLAN: 1. 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 Symptoms did completely resolve last month when she was on amoxicillin. Will treat with amoxicillin again. - Group A strep molecular testing negative - Amoxicillin for 10 days. - Discussed supportive care treatment with fluids, rest and analgesia. - Contagious dz precautions discussed- including considered contagious until on antibiotics for 24 hours Diagnosis and treatment plan were discussed and questions were answered to the patient's satisfaction. Pt acknowledged understanding of concepts and follow up plan. Specific signs and symptoms that would indicate the need for higher level of care were discussed in detail warranting prompt ER evaluation. Juan Jernigan [facility]04-13-2024 History of Present illness Narrative* Juan Jernigan, ARLIN - 11/08/2023 10:23 AM EDT This note was created using Unity 4 Humanityriter. Subjective Doug Stiles is a 22 year old female. HPI 22-year-old female presents for sore throat. Patient states sore throat started yesterday. She did have strep 3 weeks ago and finish all of her medication. She states that she felt better after finishing the medication and symptoms were completely resolved. She states yesterday she started getting sore throat again. 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 She thinks she may have gotten strep again. She did change her toothbrush out and Sticks out after being on the amoxicillin for 24 hours last time. No vomiting. Still able to eat and drink. She states she had a temp of 99.5 F this morning. Has not taken any Tylenol or Motrin. No past medical history on file. No past surgical history on file. ALLERGIES Patient has no known allergies. MEDICATIONS ibuprofen (MOTRIN ORAL) Take by mouth. amoxicillin (AMOXIL) 400 mg/5 mL suspension Take 6.3 mL by mouth two times a day for 10 days. No family history on file. Social History Tobacco Use Smoking status: Never Smokeless tobacco: Never Substance Use Topics Alcohol use: Never Drug use: Never Review of Systems Constitutional: Negative for chills and fever. HENT: Positive for sore throat. Negative for congestion and ear pain. Respiratory: Negative for cough and shortness of breath. Cardiovascular: Negative for chest pain. Gastrointestinal: Negative for diarrhea and vomiting. Objective BP 128/70 Pulse 114 Temp 36.3 C (97.3 F) Resp 18 Wt 75.4 kg (166 lb 3.6 oz) LMP 08/15/2022 SpO2 97% Physical Exam Vitals and nursing note reviewed. Constitutional: General: She is not in acute distress. Appearance: Normal appearance. She is not toxic-appearing. HENT: Right Ear: Tympanic membrane and ear canal normal. Left Ear: Tympanic membrane and ear canal normal. Nose: Nose normal. Mouth/Throat: Mouth: Mucous membranes are moist. Pharynx: Uvula midline. Posterior oropharyngeal erythema present. No oropharyngeal exudate. Tonsils: Tonsillar exudate present. No tonsillar abscesses. 1+ on the right. 1+ on the left. Eyes: Conjunctiva/sclera: Conjunctivae normal. Cardiovascular: Rate and Rhythm: Normal rate and regular rhythm. Pulmonary: Effort: Pulmonary effort is normal. Breath sounds: Normal breath sounds. Neurological: Mental Status: She is alert. Assessment and Plan ASSESSMENT/PLAN: 1. 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 Symptoms did completely resolve last monthwhen she was on amoxicillin. Will treat with amoxicillin again. - Group A strep molecular testing negative - Amoxicillin for 10 days. - Discussed supportive care treatment with fluids, rest and analgesia. - Contagious dz precautions discussed- including considered contagious until on antibiotics for 24 hours Diagnosis and treatment plan were discussed and questions were answered to the patient's satisfaction. Pt acknowledged understanding of concepts and follow up plan. Specific signs and symptoms that would indicate the need for higher level of care were discussed in detail warranting prompt ER evaluation. ARLIN Burgos documented in [facility] encounterC[facility] NoteHNO ID: [id number] Author: CONSTANTIN SOLIS APRN.SHIPPING ROOM SUPERVISOR Service: ? Author Type: Nurse Practitioner Type: Progress Notes Filed: 10/20/2023 13:39 Note Text: This note was created using NoteWriter. Subjective Doug Stiles is a 22 year old female. HPI Pt developed uri symptoms about a week ago. Yesterday she started with a sore throat and fever. Review of Systems Constitutional: Positive for fever. HENT: Positive for sore throat. Negative for rhinorrhea. Respiratory: Negative for cough. All other systems reviewed and are negative. Objective BP 118/80 Pulse 100 Temp 37.6 ?C (99.6 ?F) (Tympanic) Resp 18 Wt 74.9 kg (165 lb 2 oz) LMP 08/15/2022 SpO2 100% Physical Exam Vitals and nursing note reviewed. Constitutional: General: She is not in acute distress. Appearance: Normal appearance. She is not ill-appearing. HENT: Head: Normocephalic. Mouth/Throat: Mouth: Mucous membranes are moist. Pharynx: Posterior oropharyngeal erythema present. Eyes: Conjunctiva/sclera: Conjunctivae normal. Cardiovascular: Rate and Rhythm: Normal rate and regular rhythm. Pulmonary: Effort: Pulmonary effort is normal. Breath sounds: Normal breath sounds. Musculoskeletal: General: Normal range of motion. Cervical back: Normal range of motion. Skin: General: Skin is warm and dry. Neurological: General: No focal deficit present. Mental Status: She is alert. Psychiatric: Mood and Affect: Mood normal. Behavior: Behavior normal. Assessment and Plan ASSESSMENT/PLAN: 1. Strep throat - ICD9: 034.0, ICD10: J02.0 - suspect strep - Rapid Strep positive in the office today - Discussed supportive care treatment with fluids, rest and analgesia. - The patient may also use warm salt water gargles, throat lozenges and/or OTC throat spray as needed and nasal saline gtts and suction prn. - Contagious dz precautions discussed- including considered contagious until on antibiotics for 24 hours - The patient should follow up in 3-5 days if symptoms persist or worsen - Call back if drooling, increased temperature, symptoms of dehydration and/or still sick in one week - AMOXICILLIN 400 MG/5 ML ORAL SUSPENSION Constantin Solis APRN.CNPMer[facility]03[facility] History of Present illness Narrative* Constantin Solis APRN.EMILIA - 10/20/2023 1:24 PM EDT This note was created using Unity 4 Humanityriter. Subjective Doug Stiles is a 22 year old female. HPI Pt developed uri symptoms about a week ago. Yesterday she started with a sore throat and fever. Review of Systems Constitutional: Positive for fever. HENT: Positive for sore throat. Negative for rhinorrhea. Respiratory: Negative for cough. All other systems reviewed and are negative. Objective BP 118/80 Pulse 100 Temp 37.6 C (99.6 F) (Tympanic) Resp 18 Wt 74.9 kg (165 lb 2 oz) LMP 08/15/2022 SpO2 100% Physical Exam Vitals and nursing note reviewed. Constitutional: General: She is not in acute distress. Appearance: Normal appearance. She is not ill-appearing. HENT: Head: Normocephalic. Mouth/Throat: Mouth: Mucous membranes are moist. Pharynx: Posterior oropharyngeal erythema present. Eyes: Conjunctiva/sclera: Conjunctivae normal. Cardiovascular: Rate and Rhythm: Normal rate and regular rhythm. Pulmonary: Effort: Pulmonary effort is normal. Breath sounds: Normal breath sounds. Musculoskeletal: General: Normal range of motion. Cervical back: Normal range of motion. Skin: General: Skin is warm and dry. Neurological: General: No focal deficit present. Mental Status: She is alert. Psychiatric: Mood and Affect: Mood normal. Behavior: Behavior normal. Assessment and Plan ASSESSMENT/PLAN: 1. Strep throat - ICD9: 034.0, ICD10: J02.0 - suspect strep - Rapid Strep positive in the office today - Discussed supportive care treatment with fluids, rest and analgesia. - The patient may also use warm salt water gargles, throat lozenges and/or OTC throat spray as needed and nasal saline gtts and suction prn. - Contagious dz precautions discussed- including considered contagious until on antibiotics for 24 hours - The patient should follow up in 3-5 days if symptoms persist or worsen - Call back if drooling, increased temperature, symptoms of dehydration and/or still sick in one week - AMOXICILLIN 400 MG/5 ML ORAL SUSPENSION Constantin Solis APRN.EMILIA documented in this encounterC[facility]01[facility]26[facility] History of Present illness Narrative* Kan Hernandez APRN.CNP - 08/22/2022 2:49 PM EST Subjective HPI Nontoxic-appearing female presents to urgent care with a chief complaint of sore throat. Duration of symptoms 5 days. Associated symptoms sore throat, and headache. Patient states history of strep throat in the past with similar signs of symptoms. Patient states positive sick contacts. Works as a preschool head teacher. Patient denies any trismus, difficulty swallowing, decreased range of motion ofneck, vomiting, abdominal pain, visual changes, acute headache, cough, pleuritic pain, or change inbowel or bladder habits. Denies chance of . Is not breast-feeding. Past medical history prescription medication use and allergies reviewed. .Patient presents with: Pain, Throat: Pt reported throat pain, bilateral ear pain x5 days. No past medical history on file. No past surgical history on file. ALLERGIES Patient has no known allergies. MEDICATIONS amoxicillin (AMOXIL) 400 mg/5 mL suspension 12 ml twice a day x 10 days No family history on file. Social History Tobacco Use Smoking status: Never Smokeless tobacco: Never Substance Use Topics Alcohol use: Never Drug use: Never BP 124/72 Pulse 94 Temp 37.2 C (99 F) (Tympanic) Resp 18 Wt 82.4 kg (181 lb 9.6 oz) LMP 08/15/2022 SpO2 97% Review of Systems Constitutional: Negative for chills, fever and malaise/fatigue. HENT: Positive for congestion, ear pain and sore throat. Negative for ear discharge and sinus pain. Eyes: Negative for blurred vision, pain, discharge and redness. Respiratory: Negative for cough, hemoptysis, sputum production, shortness of breath, wheezing and stridor. Cardiovascular: Negative for chest pain. Gastrointestinal: Negative for abdominal pain, diarrhea, nausea and vomiting. Musculoskeletal: Negative for myalgias. Skin: Negative for itching and rash. Neurological: Negative for dizziness and headaches. Objective Physical Exam Constitutional: General: She is not in acute distress. Appearance: She is not diaphoretic. HENT: Head: Normocephalic. Jaw: No trismus, tenderness, swelling or pain on movement. Right Ear: Tympanic membrane, ear canal and external ear normal. No mastoid tenderness. Left Ear: Tympanic membrane, ear canal and external ear normal. No mastoid tenderness. Nose: Congestion present. Mouth/Throat: Lips: [place]. Mouth: Mucous membranes are moist. Pharynx: Oropharynx is clear. Uvula midline. Posterior oropharyngeal erythema present. No pharyngeal swelling, oropharyngeal exudate or uvula swelling. Tonsils: No tonsillar exudate or tonsillar abscesses. Eyes: Conjunctiva/sclera: Conjunctivae normal. Pupils: Pupils are equal, round, and reactive to light. Cardiovascular: Rate and Rhythm: Normal rate and regular rhythm. Heart sounds: Normal heart sounds. Pulmonary: Effort: Pulmonary effort is normal. No tachypnea, accessory muscle usage or respiratory distress. Breath sounds: Normal breath sounds. No stridor. No wheezing, rhonchi or rales. Abdominal: General: There is no distension. Palpations: Abdomen is soft. Tenderness: There is no abdominal tenderness. There is no guarding or rebound. Musculoskeletal: Cervical back: Normal range of motion and neck supple. No rigidity or tenderness. Lymphadenopathy: Cervical: No cervical adenopathy. Skin: General: Skin is warm and dry. Neurological: Mental Status: She is alert and oriented to person, place, and time. ASSESSMENT/PLAN: 1. Throat pain - ICD9: 784.1, ICD10: R07.0 - STREP A MOLECULAR (POC) Strep test positive. Placed on amoxicillin. Red flags prompt reevaluation discussed. Patient was educated on supportive therapies. Patient will follow up with primary care provider as needed. Patientwas instructed to immediately proceed to emergency room for any new, worsening, or symptoms lastinglonger than anticipated. The patient's clinical presentation is otherwise unremarkable at this time. Based on exam and clinical finding, the patient is stable for discharge. Plan of care was discussed with patient. Patient verbalizes understanding and agrees to plan of care. This note was generatedusing Zafin software. It may contain errors in wording, punctuation, or spelling. Kan Hernandez APRN.SHIPPING ROOM SUPERVISOR [facility]* Diagnosis Throat pain- Primary documented in this encounter [facility]* Diagnosis Strep throat- Primary Streptococcal sore throat [facility]* Diagnosis Strep pharyngitis- Primary Streptococcal sore throat [facility]* Diagnosis Dermatitis due to plants, including poison eugenio, sumac, and oak- Primary Contact dermatitis and other eczema due to plants (except food) documented in this encounter [facility] note* Diagnosis Onset Date Resolution Status Admit Date Encounter for routine gynecological examination noneactive January 252024 8:54am [facility] Work Phone: Reason for referral (narrative)No reason for referral information availableMargaret Mary [facility] Work Phone: Summary Purpose Family History No Family History Records Found Relationship Condition Age at Onset Recorded Date/T ed brother Asthma Unknown Advance Directives No Advanced Directives Records FoundNo Advanced Directives Records FoundNo Advanced Directives Records Found Chief Complaint and Reason for Visit Chief Complaint Admit Date Annual (CONSTRUCTION ADMINISTRATOR) February 09, 2025 8:54 am Reason for Visit Admit Date Encounter for routine gynecological exam ination February 09, 2025 8:54am Additional Source Comments Source Comments (unrecognize d section and content) In the event this informatio n is protected by the Federal Confidentiality of Alcohol and Drug Abuse Patient Records regulations: The Federal rules restrict any use of the information to criminally investigate or prosecute any alcohol or drug abuse patient.[facility] the event this information is protected by the Federal Confidentiality of Alcohol and Drug Abuse Patient Records regulations: The Federal rules restrict any use of the information to criminally investigate or prosecute any alcohol or drug abuse patient.[facility] the event this information is protected by the Federal Confidentiality of Alcohol and Drug Abuse Patient Records regulations: The Federal rules restrict any use of the information to criminally investigate or prosecute any alcohol or drug abuse patient.[facility] Hospital[facility] the event this information is protected by the Federal Confidentiality of Alcohol and Drug Abuse Patient Records regulations: The Federal rules restrict any use of the information to criminally investigate or prosecute any alcohol or drug abuse patient.[facility] Reason for Visit (unrecogniz ed section and content) Reason Comments Pain, Throat Pt reported throat p ain, bilateral ear pain x5 days. Specialty Diagnoses / Procedures Referred By Rufus t Referred To Contact [facility] / [facility] Diagnoses Throat pain sore throat, hurts to swallow, ear pain Procedures OFFICE/OUTPATIENT NEW MODERATE MDM 45-59 MINUTES NEW SAME DAY [facility] [address] [place] [address] Referral ID Status Reason Start Date Expiration Date Visits Re quested Visits Authorized [id number] Closed 08/22/2022 07/27/2023 1 1 Reason Comments Sore Throat ST and fever x 2 day s Reason Comments Sore Throat X1 day, recent strep Reason Comments Rash Poison eugenio and sprea ding x4 days Care Teams (unrecognized sec tion and content) Residential Caregiver Relationship Specialty Start Date End Date Pcp, No PCP - General 02/09/22 08/27/22 Team Status: Active Member Role/Relationship Status Dates Dr. Sandra Ruth MD Family Provider Active Dr. Sandra Ruth MD Primary Care Provider Active Team Status: Inactive Member Role/Relationship Status Dates Dr. Sandra Ruth MD Primary Care Provider Active Start: February 09, 2025 End: February 09, 2025 Dr. Sandra Ruth MD Referring Provider Active Start: February 09, 2025 End: February 09, 2025 ADONIS Hernandez Attending Provider Active Start: February 09, 2025 End: February 09, 2025 Team Status: Inactive Member Role/Relationship Status Dates Dr. Sandra Ruth MD Primary Care Provider Active Start: February 09, 2025 End: February 09, 2025 Dr. Sandra Ruth MD Referring Provider Active Start: February 09, 2025 End: February 09, 2025 ADONIS Hernandez Attending Provider Active Start: February 09, 2025 End: February 09, 2025 Team Status: Inactive Member Role/Relationship Status Dates Dr. Sunni Moise MD Attending Provider Active Start: February 18, 2025 End: February 18, 2025 Team Status: Inactive Member Role/Relationship Status Dates Dr. Sandra Ruth MD Referring Provider Active Start: February 22, 2025 End: February 22, 2025 Dr. Melony Cruz DO Attending Provider Activ e Start: February 22, 2025 End: February 22, 2025 Team Status: Active Member Role/Relationship Status Dates Dr. Melony Cruz DO Attending Provider Activ e Start: February 22, 2025 Team Status: Inactive Member Role/Relationship Status Dates Dr. Melony Cruz DO Attending Provider Activ e Start: February 22, 2025 End: February 22, 2025 Team Status: Inactive Member Role/Relationship Status Dates Dr. Sunni Moise MD Attending Provider Active Start: March 24, 2025 End: March 24, 2025 Team Status: Inactive Member Role/Relationship Status Dates Dr. Sandra Ruth MD Primary care physician Active Start: February 09, 2025 End: February 09, 2025 Dr. Sandra Ruth MD Referring Provider Active Start: February 09, 2025 End: February 09, 2025 ADONIS Hernandez Attending physician Active Start: February 09, 2025 End: February 09, 2025 Team Status: Inactive Member Role/Relationship Status Dates Dr. Sunni Moise MD Attending physician Active Start: February 18, 2025 End: February 18, 2025 Team Status: Inactive Member Role/Relationship Status Dates Dr. Sandra Ruth MD Referring Provider Active Start: February 22, 2025 End: February 22, 2025 Dr. Melony Cruz DO Attending physician Acti ve Start: February 22, 2025 End: February 22, 2025 Team Status: Inactive Member Role/Relationship Status Dates Dr. Melony Cruz DO Attending physician Acti ve Start: February 22, 2025 End: February 22, 2025 Team Status: Inactive Member Role/Relationship Status Dates Dr. Sunni Moise MD Attending physician Active Start: March 24, 2025 End: March 24, 2025 Team Status: Inactive Member Role/Relationship Status Dates Dr. Sunni Moise MD Attending physician Active Start: April 20, 2025 End: April 20, 2025 INFORMATION SOURCE (unrecogn ized section and content) DATE CREATED AUTHOR 02/12/[address] [facility] DATE CREATED AUTHOR AUTHOR'S ORGANIZ ATION 05/14/2025 [facility] DATE CREATED AUTHOR AUTHOR'S ORGANIZ ATION 05/21/2025 [facility] Goals (unrecognized section and content) Type Care Experience Labor Preferences-CB /BF classes: []labor support person: []labor intervention preferences: []pain management options preferred: []cut cord/dad catch: []: []PP control planned: []discussed possible routes of delivery and associated risks: []special requests: [] FOR RECORDS PERTAINING TO PATIENTS WHO ARE OR HAVE BEEN ENROLLED IN A CHEMICAL DEPENDENCY/SUBSTANCEABUSE PROGRAM, SOME INFORMATION MAY BE OMITTED. This clinical summary was aggregated from multiple sources. Caution should be exercised in using it in the provision of clinical care. This summary normalizes information from multiple sources, and as a consequence, information in this document may materially change the coding, format and clinical context of patient data. In addition, data may be omitted in some cases. CLINICAL DECISIONS SHOULD BE BASED ON THE PRIMARY CLINICAL RECORDS. [employer] provides no warranty or guarantee of the accuracy or completeness of information in this document.
[2025-07-05 07:25] LABS: Glucose GTT-Gestation. Fasting 102 mg/dL (<105)
[2025-07-05 10:32] LABS: Glucose GTT-Gestational 1 Hr 212 mg/dL (<190)
[2025-07-05 11:01] LABS: Glucose GTT-Gestational 2 Hr 185 mg/dL (<165)
[2025-07-05 11:35] LABS: Glucose GTT-Gestational 3 Hr 121 L (<145)
== END | disposition home or self-care (01) ==
PROVIDERS: Referring Provider Obstetrics & Gynecology; Visit Provider Obstetrics & Gynecology
DX: Z13.1 Encounter for screening for diabetes mellitus (principal)
CPT/HCPCS: 36415; 82951; 82952

== ENCOUNTER 2025-07-18 09:29 | Outpatient (RCR) | payer OTHER, SELFPAY | END 2025-07-27 23:59 | LOC: NS 09:29 | PROVIDERS: Referring Provider Nurse Practitioner Women's Health; Visit Provider Nurse Practitioner Women's Health | DX: Z71.3 Dietary counseling and surveillance (principal); O24.419 Gestational diabetes mellitus in pregnancy, unspecified control | CPT/HCPCS: 97802 ==